=== PATIENT | female | born 1965 | race Caucasian/White ===

== ENCOUNTER 2018-07-12 14:24 | Emergency (ER) | payer BC, OTHER ==
[~2018-07-12] VITALS: Ht 154.9 cm; Wt 106.6 kg
[2018-07-12 14:58] LABS: WHITE BLOOD COUNT 7.8 10^3/uL (4.3-11.0)
[2018-07-12 14:59] LABS: BASOPHILS % (AUTO) 1 % (0-10); EOSINOPHILS # (AUTO) 0.2 10^3/uL (0.0-0.3); EOSINOPHILS % (AUTO) 2 % (0-10); HEMATOCRIT 37 % (35-52); LYMPHOCYTES # (AUTO) 2.3 X 10^3 (1.0-4.0); LYMPHOCYTES % (AUTO) 30 % (12-44); MEAN CORPUSCULAR HEMOGLOBIN 30 PG (25-34); MEAN CORPUSCULAR HGB CONC 33 G/DL (32-36); MEAN CORPUSCULAR VOLUME 91 FL (80-99); MEAN PLATELET VOLUME 10.2 FL (7.4-10.4); MONOCYTES # (AUTO) 0.6 X 10^3 (0.0-1.0); MONOCYTES % (AUTO) 7 % (0-12); NEUTROPHILS # (AUTO) 4.6 X 10^3 (1.8-7.8); NEUTROPHILS % (AUTO) 59 % (42-75); PLATELET COUNT 268 10^3/uL (130-400); RED CELL DISTRIBUTION WIDTH 11.9 % (10.0-14.5)
[2018-07-12 15:00] LABS: BASOPHILS # (AUTO) 0.1 10^3/uL (0.0-0.1)
[2018-07-12 15:06] LABS: BILIRUBIN,URINE NEGATIVE (NEGATIVE); CLARITY,URINE CLEAR; COLOR,URINE YELLOW; GLUCOSE, URINE (UA) NEGATIVE (NEGATIVE); KETONES,URINE NEGATIVE (NEGATIVE); LEUKOCYTE ESTERASE ,URINE NEGATIVE (NEGATIVE); NITRITE,URINE NEGATIVE (NEGATIVE); PROTEIN,URINE NEGATIVE (NEGATIVE); RBC,URINE 0-2 /HPF; UROBILINOGEN,URINE 0.2 MG/DL (NORMAL)
[2018-07-12 15:07] LABS: BACTERIA,URINE NEGATIVE /HPF; WBC,URINE 0-2 /HPF
[2018-07-12 15:29] LABS: CHLORIDE 102 MMOL/L (98-107); POTASSIUM 3.8 MMOL/L (3.6-5.0); SODIUM 140 MMOL/L (135-145)
[2018-07-12 15:30] LABS: ALANINE AMINOTRANSFERASE 29 U/L (0-55); ALBUMIN 4.5 GM/DL (3.2-4.5); ALKALINE PHOSPHATASE 42 U/L (40-136); BILIRUBIN,TOTAL 0.3 MG/DL (0.1-1.0); BUN/CREATININE RATIO 24; CALCIUM 9.4 MG/DL (8.5-10.1); CARBON DIOXIDE 21 MMOL/L (21-32); CREATININE SERUM 0.63 MG/DL (0.60-1.30); GFR ESTIMATED > 60; GLUCOSE 111 MG/DL (70-105); TOTAL PROTEIN 7.3 GM/DL (6.4-8.2)
--- NOTE | 2018-07-12 15:35 | Diagnostic Imaging Report ---
INDICATION: Heart palpitations and shortness of breath. TIME OF EXAM: 3:22 p.m. FINDINGS: The heart size is normal. The pulmonary vascularity is unremarkable. The lungs are clear. No infiltrate, effusion or pneumothorax is detected. IMPRESSION: No acute cardiopulmonary process is detected. Dictated by: Dictated on workstation # [id number]
--- NOTE | 2018-07-12 16:21 | NUR ---
Spoke with ADELIA Dominguez at Yenni Charles APRN's office. Angelica informed of patient declining inpatient admission and requesting outpatient stress test be scheduled.
--- NOTE | 2018-07-12 16:51 | ED Cardiac General ---
History of Present Illness General Chief Complaint: Cardiac/General Problems Stated Complaint: HEART PALPITATIONS; SOB Nursing Triage Note: Patient reports she has had palpitations for years, had a negative stress test 20 years ago. States she has gained weight and has become increasingly short of breath with activity for 2-3 weeks. Family history of heart disease and heart attack. Source: patient Exam Limitations: no limitations History of Present Illness Date Seen by Provider: Jul 12, 2018 Time Seen by Provider: 16:51 Initial Comments Patient presents with altered mental complaints. Patient reports written palpitations, dyspnea with exertion for the past 2-3 months. Exercise associated with sharp chest pain which is less than 5 minutes improved with rest. Patient denies shortness of breath, chest pain at this time. She was seen her primary care physician's office prior to the arrival and had an EKG performed which showed ST depression inferior and lateral leads without acute ST elevation. Patient denies history of CAD, congestive heart failure, valvular heart disease or cardiomyopathy. Does report history of palpitations for which she takes propranolol. She states sharp chest pain is likely related to propanolol and goes away when she remembers to take her medications. Patient was reports increased weight gain and hypertension which has been poorly controlled. Patient is a nonsmoker. States her father had an DE at the age of 51. Timing/Duration: changing over time, intermittent, resolved prior to arrival Severity: mild Location: central Activities at Onset: activity Prior CP/Workup: no prior chest pain Modifying Factors: improves with exercise NTG SL SUPERVISOR SHUTTLE VENEERING: No ASA po SUPERVISOR SHUTTLE VENEERING: No Associated Systoms: Chest Pain, Shortness of Air Allergies and Home Medications Allergies Coded Allergies: cefdinir (Verified Allergy, Intermediate, hives, 07/12/18) adhesive tape (Verified Allergy, Unknown, rash, 07/12/18) Uncoded Allergies: PENICILLIN (Allergy, Intermediate, rash, 07/12/18) Patient Home Medication List Home Medication List Reviewed: Yes Review of Systems Review of Systems Constitutional: see HPI EENTM: See HPI Respiratory: See HPI Cardiovascular: See HPI Gastrointestinal: See HPI Genitourinary: See HPI Musculoskeletal: see HPI Skin: see HPI Psychiatric/Neurological: See HPI Endocrine: See HPI Hematologic/Lymphatic: See HPI All Other Systems Reviewed Negative Unless Noted: Yes Past Oienufo-Sjatvi-Sztuly Hx Past Med/Social Hx: Reviewed Nursing Past Med/Soc Hx Patient Social History Alcohol Use: Denies Use Recreational Drug Use: No Smoking Status: Never a Smoker 2nd Hand Smoke Exposure: No Recent Foreign Travel: No Contact w/Someone Who Travel: No Recent Infectious Disease Expo: No Recent Hopitalizations: No Physical Abuse: No Sexual Abuse: No Mistreated: No Fear: No Seasonal Allergies Seasonal Allergies: No Past Medical History Surgeries: Yes Gallbladder Respiratory: No Cardiac: Yes High Cholesterol, Hypertension Neurological: No Genitourinary: No Gastrointestinal: No Musculoskeletal: No Endocrine: No HEENT: No Cancer: No Psychosocial: No Integumentary: No Blood Disorders: No Physical Exam Vital Signs Vital Signs - First Documented 07/12/18 14:45 Temp 98.3 Pulse 67 Resp 16 B/P (MAP) 166/80 (108) Pulse Ox 99 O2 Delivery Room Air Capillary Refill : Less Than 3 Seconds Height, Weight, BMI Height: 5'1.00" Weight: 235lbs. oz. 106.438005ot; BMI Method:Stated General Appearance: No Apparent Distress, WD/WN, Anxious HEENT: PERRL/EOMI, TMs Normal, Normal ENT Inspection, Pharynx Normal Neck: Full Range of Motion, Normal Inspection Respiratory: Chest Non Tender, Lungs Clear, Normal Breath Sounds Cardiovascular: Regular Rate, Rhythm, No Edema, No Gallop, No JVD, No Murmur Gastrointestinal: Non Tender Extremity: Normal Capillary Refill Neurologic/Psychiatric: Alert, Oriented x3, No Motor/Sensory Deficits Skin: Warm/Dry Focused Exam Sepsis Stage: Ruled Out Progress/Results/Core Measures Results/Orders Lab Results Laboratory Tests Test 07/12/18 14:30 07/12/18 14:45 Range/Units Urine Color YELLOW Urine Clarity CLEAR Urine pH 6.0 5-9 Urine Specific [place] 1.010 L 1.016-1.022 Urine Protein NEGATIVE NEGATIVE Urine Glucose (UA) NEGATIVE NEGATIVE Urine Ketones NEGATIVE NEGATIVE Urine Nitrite NEGATIVE NEGATIVE Urine Bilirubin NEGATIVE NEGATIVE Urine Urobilinogen 0.2 NORMAL MG/DL Urine Leukocyte Esterase NEGATIVE NEGATIVE Urine RBC (Auto) TRACE H NEGATIVE Urine RBC 0-2 /HPF Urine WBC 0-2 /HPF Urine Squamous Epithelial Cells NONE /HPF Urine Crystals NONE /LPF Urine Bacteria NEGATIVE /HPF Urine Casts NONE /LPF Urine Mucus NONE /LPF Urine Culture Indicated NO White Blood Count 7.8 4.3-11.0 10^3/uL Red Blood Count 4.04 L 4.35-5.85 10^6/uL Hemoglobin 12.0 11.5-16.0 G/DL Hematocrit 37 35-52 % Mean Corpuscular Volume 91 80-99 FL Mean Corpuscular Hemoglobin 30 25-34 PG Mean Corpuscular Hemoglobin Concent 33 32-36 G/DL Red Cell Distribution Width 11.9 10.0-14.5 % Platelet Count 268 130-400 10^3/uL Mean Platelet Volume 10.2 7.4-10.4 FL Neutrophils (%) (Auto) 59 42-75 % Lymphocytes (%) (Auto) 30 12-44 % Monocytes (%) (Auto) 7 0-12 % Eosinophils (%) (Auto) 2 0-10 % Basophils (%) (Auto) 1 0-10 % Neutrophils # (Auto) 4.6 1.8-7.8 X 10^3 Lymphocytes # (Auto) 2.3 1.0-4.0 X 10^3 Monocytes # (Auto) 0.6 0.0-1.0 X 10^3 Eosinophils # (Auto) 0.2 0.0-0.3 10^3/uL Basophils # (Auto) 0.1 0.0-0.1 10^3/uL D-Dimer 0.34 0.00-0.49 UG/ML Sodium Level 140 135-145 MMOL/L Potassium Level 3.8 3.6-5.0 MMOL/L Chloride Level 102 98-107 MMOL/L Carbon Dioxide Level 21 21-32 MMOL/L Anion Gap 17 H 5-14 MMOL/L Blood Urea Nitrogen 15 7-18 MG/DL Creatinine 0.63 0.60-1.30 MG/DL Estimat Glomerular Filtration Rate > 60 BUN/Creatinine Ratio 24 Glucose Level 111 H 70-105 MG/DL Calcium Level 9.4 8.5-10.1 MG/DL Corrected Calcium 9.0 8.5-10.1 MG/DL Total Bilirubin 0.3 0.1-1.0 MG/DL Aspartate Amino Transf (AST/SGOT) 32 5-34 U/L Alanine Aminotransferase (ALT/SGPT) 29 0-55 U/L Alkaline Phosphatase 42 40-136 U/L Troponin T < 6 <=10 NG/L Pro-B-Type Natriuretic Peptide 236.0 H <75.0 PG/ML Total Protein 7.3 6.4-8.2 GM/DL Albumin 4.5 3.2-4.5 GM/DL My Orders Orders - BLUE HEATH DO Cbc With Automated Diff (07/12/18 14:30) Comprehensive Metabolic Panel (07/12/18 14:30) Troponin T (07/12/18 14:30) Chest 1 View Ap/Pa Only (07/12/18 14:30) Ua Culture If Indicated (07/12/18 14:30) Probnp Fs (07/12/18 14:34) Ekg Tracing (07/12/18 14:38) Fibrin Degradation Products (07/12/18 15:02) Vital Signs/I&O 07/12/18 14:45 Temp 98.3 Pulse 67 Resp 16 B/P (MAP) 166/80 (108) Pulse Ox 99 O2 Delivery Room Air Blood Pressure Mean: 108 Departure Communication (PCP) Patient with ST depression, negative troponin mildly elevated BMP. Reports feeling anxious on emergency department due to potential concerns of heart disease. Blood pressure also noted be elevated. Admission[facility]transfer to [facility] packaging sales offered and recommended. Patient verbalized potential risks and dangers of delayed diagnosis/treatment and declines transfer. She prefers to follow up with her PCP for outpatient cardiac testing. Given the patient's asymptomatic, I feel is reasonable plan. Will add additional blood pressure medication and provide two-day course of diuretic. Patient strictly to return to the emergency department should her symptoms worsen. Impression Primary Impression: Chest pain on exertion Additional Impressions: Shortness of breath Hypertension Disposition: 01 HOME, SELF-CARE Condition: Stable Departure-Patient Inst. Decision time for Depature: 16:59 Referrals: KENDRA BATES APRN (PCP) Primary Care Physician BILLY SCHROEDER MD (Family) Primary Care Physician Patient Instructions: Chest Pain (DC), Shortness of Breath (Dyspnea) (DC), High Blood Pressure in Adults Add. Discharge Instructions: Please take newly prescribed medications as directed and follow-up with her PCPs office on Sunday morning to coordinate further outpatient cardiac testing. In the meantime, if you develop new or worsening symptoms, return to emergency department. All discharge instructions reviewed with patient and/or family. Voiced understanding. Scripts Furosemide (Lasix) 20 Mg Tablet 20 MG PO DAILY, #2 TAB Prov: BLUE HEATH DO 07/12/18 Amlodipine Besylate (Norvasc) 10 Mg Tablet 10 MG PO DAILY for 30 Days, TAB Prov: BLUE HEATH DO 07/12/18 BLUE HEATH DO Jul 12, 2018 16:51
[2018-07-12] MEDS ORDERED: FURO-125 PO (17:01)
[2018-07-12] MEDS ORDERED: AMLO10TA4 PO (17:01)
[2018-07-12 17:22] VITALS: BP 184/91
== END 2018-07-12 17:23 | disposition home or self-care (01) ==
LOC: ER FS 14:26
DX: R07.89 Other chest pain (principal); R06.02 Shortness of breath; I10 Essential (primary) hypertension; E78.00 Pure hypercholesterolemia, unspecified; Z82.49 Family history of ischemic heart disease and other diseases of the circulatory system; Z88.1 Allergy status to other antibiotic agents; Z88.0 Allergy status to penicillin; Z91.048 Other nonmedicinal substance allergy status
CPT/HCPCS: 36415; 71045; 80053; 81000; 83880; 84484; 85025; 85379; 93005

== ENCOUNTER 2019-09-06 12:20 | Emergency (ER) | payer BC ==
[~2019-09-06] VITALS: Ht 157.5 cm; Wt 106.8 kg
[~2019-09-06 12:20] MED LIST: AMLO10TA4 PO; FURO-125 PO
--- OUTSIDE RECORDS SUMMARY | 2019-09-06 12:23 | XMS REPORT | Continuity of Care Document ---
Author Organization Unknown Address Unknown Phone Unavailable Allergies Active Description Code Type Severity Reaction Onset Reported/Identified Relationship to Patient Clinical Status Yes cefdinir [id number] Drug Allergy Moderate hives 07/12/2018 Yes PENICILLIN PENICILLIN Moderate rash 07/12/2018 Yes adhesive tape [id number] Horace g Allergy Unknown rash 07/12/2018 Medications There is no data. Problems Date Dx Coded Attending Type Code Diagnosis Diagnosed By 07/12/2018 BLUE HEATH DO Ot E78.00 PURE HYPERCHOLESTEROLEMIA, UNSPECIFIED 07/12/2018 IVANA DO, BLUE Ot I10 ESSENTIAL (PRIMARY) HYPERTENSION 07/12/2018 HEATH DO, BLUE Ot R06.02 SHORTNESS OF BREATH 07/12/2018 HEATH DO BLUE Ot R07.89 OTHER CHEST PAIN 07/12/2018 BLUE HEATH DO Ot R41.82 ALTERED MENTAL STATUS, UNSPECIFIED 07/12/2018 HEATH DO, BLUE Ot Z82.49 FAMILY HX OF ISCHEM HEART DIS AND OTH DI 07/12/2018 IVANA WRIGHT BLUE Ot Z88.0 ALLERGY STATUS TO PENICILLIN 07/12/2018 HEATH DO, BLUE Ot Z88.1 ALLERGY STATUS TO OTHER ANTIBIOTIC AGENT 07/12/2018 IVANA WRIGHT BLUE Ot Z91.048 OTHER NONMEDICINAL SUBSTANCE ALLERGY STA 07/16/2018 BLUE HEATH DO Ot E78.00 PURE HYPERCHOLESTEROLEMIA, UNSPECIFIED 07/16/2018 IVANA WRIGHT BLUE Ot I10 ESSENTIAL (PRIMARY) HYPERTENSION 07/16/2018 IVANA DO BLUE Ot R06.02 SHORTNESS OF BREATH 07/16/2018 IVANA DO BLUE Ot R07.89 OTHER CHEST PAIN 07/16/2018 BLUE HEATH DO Ot R41.82 ALTERED MENTAL STATUS, UNSPECIFIED 07/16/2018 IVANA WRIGHT BLUE Ot Z82.49 FAMILY HX OF ISCHEM HEART DIS AND OTH DI 07/16/2018 IVANA WRIGHT BLUE Ot Z88.0 ALLERGY STATUS TO PENICILLIN 07/16/2018 IVANA WRIGHT, BLUE Ot Z88.1 ALLERGY STATUS TO OTHER ANTIBIOTIC AGENT 07/16/2018 IVANA WRIGHT BLUE Ot Z91.048 OTHER NONMEDICINAL SUBSTANCE ALLERGY STA Procedures There is no data. Results Test Result Range Complete urinalysis with reflex to cultu re - 07/12/18 14:30 Urine color determination YELLOW NRG Urine clarity determination CLEAR NR G Urine pH measurement by test strip 6.0 5-9 Specific gravity of urine by test strip 1.010 1.016-1.022 Urine protein assay by test strip, semi-quantitative NEGATIVE NEGATIVE Urine glucose detection by automated test strip NE GATIVE NEGATIVE Erythrocytes detection in urine sediment by light micr oscopy TRACE NEGATIVE Urine ketones detection by automated test strip NE GATIVE NEGATIVE Urine nitrite detection by test strip NEGATIVE NEGATIVE Urine total bilirubin detection by test strip NEGA TIVE NEGATIVE Urine urobilinogen measurement by automated test strip (mass/volume) 0.2 mg/dL NORMAL Urine leukocyte esterase detection by dipstick NEG ATIVE NEGATIVE Automated urine sediment erythrocyte cou nt by microscopy (number/high power field) [HPF] NRG Automated urine sediment leukocyte count by microscopy (number/high power field) [HPF] NRG Bacteria detection in urine sediment by light microsco py NEGATIVE NRG Squamous epithelial cells detection in u rine sediment by light microscopy NONE NRG Crystals detection in urine sediment by light microsco py NONE NRG Casts detection in urine sediment by light microscopy NONE NRG Mucus detection in urine sediment by light microscopy NONE NRG Complete urinalysis with reflex to culture NO NRG Complete blood count (CBC) with automate d white blood cell (WBC) differential - 07/12/18 14:45 Blood leukocytes automated count (number/volume) 7.8 10*3/uL 4.3-11.0 Blood erythrocytes automated count (number/volume) 4.04 10*6/uL 4.35-5.85 Venous blood hemoglobin measurement (mass/volume) 12.0 g/dL 11.5-16.0 Blood hematocrit (volume fraction) 37 % 35-52 Automated erythrocyte mean corpuscular volume 91 [ foz_us] 80-99 Automated erythrocyte mean corpuscular h emoglobin (mass per erythrocyte) 30 pg 25-34 Automated erythrocyte mean corpuscular h emoglobin concentration measurement (mass/volume) 33 g/dL 32-36 Automated erythrocyte distribution width ratio 11. 9 % 10.0- 14.5 Automated blood platelet count (count/volume) 268 10*3/uL 130-400 Automated blood platelet mean volume measurement 10.2 [foz_us] 7.4-10.4 Automated blood neutrophils/100 leukocytes 59 % 42-75 Automated blood lymphocytes/100 leukocytes 30 % 12-44 Blood monocytes/100 leukocytes 7 % 0-12 Automated blood eosinophils/100 leukocytes 2 % 0-10 Automated blood basophils/100 leukocytes 1 % 0-10 Blood neutrophils automated count (number/volume) 4.6 10*3 1.8-7.8 Blood lymphocytes automated count (number/volume) 2.3 10*3 1.0-4.0 Blood monocytes automated count (number/volume) 0. 6 10*3 0.0-1.0 Automated eosinophil count 0.2 10*3/uL 0 .0-0.3 Automated blood basophil count (count/volume) 0.1 10*3/uL 0.0-0.1 Comprehensive metabolic panel - 07/12/18 14:45 Serum or plasma sodium measurement (moles/volume) 140 mmol/L 135-145 Serum or plasma potassium measurement (moles/volume) 3.8 mmol/L 3.6-5.0 Serum or plasma chloride measurement (moles/volume) 102 mmol/L 98-107 Carbon dioxide 21 mmol/L 21-32 Serum or plasma anion gap determination (moles/volume) 17 mmol/L 5-14 Serum or plasma urea nitrogen measurement (mass/volume ) 15 mg/dL 7-18 Serum or plasma creatinine measurement (mass/volume) 0.63 mg/dL 0.60-1.30 Serum or plasma urea nitrogen/creatinine mass ratio 24 NRG Serum or plasma creatinine measurement w ith calculation of estimated glomerular filtration rate > NRG Serum or plasma glucose measurement (mass/volume) 111 mg/dL 70-105 Serum or plasma calcium measurement (mass/volume) 9.4 mg/dL 8.5-10.1 Serum or plasma total bilirubin measurement (mass/volu me) 0.3 mg/dL 0.1-1.0 Serum or plasma alkaline phosphatase nancy surement (enzymatic activity/volume) 42 U/L 40-136 Serum or plasma aspartate aminotransfera se measurement (enzymatic activity/volume) 32 U/L 5-34 Serum or plasma alanine aminotransferase measurement (enzymatic activity/volume) 29 U/L 0-55 Serum or plasma protein measurement (mass/volume) 7.3 g/dL 6.4-8.2 Serum or plasma albumin measurement (mass/volume) 4.5 g/dL 3.2-4.5 CALCIUM CORRECTED 9.0 mg/dL 8.5-10.1 TROPONIN T - 07/12/18 14:45 TROPONIN T < 6 <=10 PROBNP FS - 07/12/18 14:45 PROBNP FS 236.0 pg/mL <75.0 Fibrin D-dimer FEU measurement in platel et poor plasma (mass/volume) - 07/12/18 14:45 Fibrin D-dimer FEU measurement in platelet poor plasma (mass/volume) 0.34 ug/mL 0.00-0.49 Encounters ACCT No. Visit Date/Time Discharge Status Pt. Type Provider Facility Loc./Unit Complaint [id number] 07/12/2018 14:26:00 019 17:23:00 DIS Emergency HEATH BLUE WRIGHT [facility] ER FS HEART PALPITATIONS; SOB
[2019-09-06] MEDS ORDERED: ONDANSETRON 4 MG (ZOFRAN) ORAL DISSOLVE TAB PO STA (12:47)
[2019-09-06] MEDS ORDERED: LORazepam INJ 2 MG/ML (ATIVAN) VIAL IM ONE (13:00)
[2019-09-06] MEDS ORDERED: fentaNYL INJECTION 100 MCG/2 ML AMP IM PRN (13:00)
--- NOTE | 2019-09-06 13:42 | ED Abdominal Pain ---
General Chief Complaint: Rect Problems Stated Complaint: RECTAL PAIN Nursing Triage Note: Patient states she has a history of rectal fissures requiring surgical repair. States she became constipated following a surgery with prescription pain medication and developed another fissure. States she has been attempting to make an appointment with a surgeon at [facility]. Patient states the pain has worsened over the last 3 days and became severe today. Sepsis Screen: No Definite Risk Source of Information: Patient Exam Limitations: No Limitations History of Present Illness Date Seen by Provider: Sep 06, 2019 Time Seen by Provider: 13:00 Initial Comments Patient is a 54-year-old female with history of irritable bowel syndrome, rectal fissures and internal hemorrhoids who presents with intermittent rectal pain with rectal bleeding 2 months with increased rectal pain this morning. Patient describes heart burning sensation in rectum. Pain is lancinating and comes in waves. His rated moderate to severe. Patient has been using fetc-lgu-vnlpody pain medications and sitz baths without relief of symptoms. No nausea vomiting. No fever chills or sweats. No other acute symptoms or complaints. Patient's currently awaiting referral to general surgeon. Severity/Quality: Severe Location: Other (rectal) Associated Symptoms: Denies Symptoms Allergies and Home Medications Allergies Coded Allergies: cefdinir (Verified Allergy, Intermediate, hives, 07/12/18) adhesive tape (Verified Allergy, Unknown, rash, 07/12/18) morphine (Verified Adverse Reaction, Unknown, nausea and vomiting, 09/06/19) Uncoded Allergies: PENICILLIN (Allergy, Intermediate, rash, 07/12/18) Home Medications Amlodipine Besylate 10 Mg Tablet, 10 MG PO DAILY Prescribed by: BLUE HEATH on 07/12/181700 Furosemide 20 Mg Tablet, 20 MG PO DAILY Prescribed by: BLUE HEATH on 07/12/18 170 Patient Home Medication List Home Medication List Reviewed: Yes Review of Systems Review of Systems Constitutional: see HPI EENTM: See HPI Respiratory: See HPI Cardiovascular: See HPI Gastrointestinal: See HPI Genitourinary: See HPI Musculoskeletal: see HPI Skin: see HPI Psychiatric/Neurological: See HPI Endocrine: See HPI Hematologic/Lymphatic: See HPI Past Xagdfht-Xydecy-Eimoxc Hx Past Med/Social Hx: Reviewed Nursing Past Med/Soc Hx Patient Social History 2nd Hand Smoke Exposure: No Recent Foreign Travel: No Contact w/Someone Who Travel: No Recent Infectious Disease Expo: No Recent Hopitalizations: No Seasonal Allergies Seasonal Allergies: No Past Medical History Surgeries: Yes Gallbladder Respiratory: No Cardiac: Yes High Cholesterol, Hypertension Neurological: No Genitourinary: No Gastrointestinal: No Musculoskeletal: No Endocrine: No HEENT: No Cancer: No Psychosocial: No Integumentary: No Blood Disorders: No Physical Exam Vital Signs Vital Signs - First Documented 09/06/19 12:50 Temp 37.1 Pulse 70 Resp 20 B/P (MAP) 162/91 (114) Pulse Ox 93 O2 Delivery Room Air Capillary Refill : Less Than 3 Seconds Height/Weight/BMI Height: 5'1.00" Weight: 235lbs. oz. 106.538101ai; 43.00 BMI Method:Stated General Appearance: severe distress HEENT: PERRL/EOMI Neck: full range of motion, supple Respiratory: lungs clear Cardiovascular: regular rate, rhythm Gastrointestinal: non tender, soft, other (rectum, suspect is causing, no external hemorrhoids, bleeding or lesions appreciated. Unable to form COLLIN due to patient discomfort) Focused Exam Sepsis Stage: Ruled Out Progress/Results/Core Measures Results/Orders My Orders Orders - BLUE HEATH DO Fentanyl Injection (Sublimaze Injection (09/06/19 13:00) Ondansetron Oral Dissolve Tab (Zofran (09/06/19 12:47) Lorazepam Injection (Ativan Injection) (09/06/19 13:00) Medications Given in ED Current Medications Medications Dose Ordered Sig/Ascencion Route Start Time Stop Time Status Last Admin Dose Admin Fentanyl Citrate 100 mcg Q1H PRN IM 09/06/19 13:00 09/06/19 12:59 100 MCG Lorazepam 2 mg ONCE ONCE IM 09/06/19 13:00 09/06/19 13:01 DC 09/06/19 12:59 2 MG Vital Signs/I&O 09/06/19 12:50 Temp 37.1 Pulse 70 Resp 20 B/P (MAP) 162/91 (114) Pulse Ox 93 O2 Delivery Room Air Blood Pressure Mean: 114 Departure Communication (Admissions) Pain improved with tx. Patient currently on steroid, lidocaine cream,muscle relaxer and laxatives. We'll recommend tramadol and also with to follow with general surgeon Impression Primary Impression: Paroxysmal proctalgia Disposition: 01 HOME, SELF-CARE Condition: Improved Departure-Patient Inst. Referrals: KENDRA BATES APRN (PCP) Primary Care Physician BILLY SCHROEDER MD (Family) Primary Care Physician Patient Instructions: Anal Fissure (DC) Add. Discharge Instructions: Please continue home medications. Additionally, you may take Toradol for pain and Metamucil to soften bowel movements. Follow your PCP recommendations and follow-up with general surgeon. All discharge instructions reviewed with patient and/or family. Voiced understanding. BLUE HEATH DO Sep 06, 2019 13:42
[2019-09-06 14:10] VITALS: BP 166/72
== END 2019-09-06 14:06 | disposition home or self-care (01) ==
LOC: ER FS 12:20
DX: K62.89 Other specified diseases of anus and rectum (principal); I10 Essential (primary) hypertension; Z88.1 Allergy status to other antibiotic agents; Z88.5 Allergy status to narcotic agent; Z88.0 Allergy status to penicillin; Z88.8 Allergy status to other drugs, medicaments and biological substances
CPT/HCPCS: 99284

== ENCOUNTER 2019-09-09 11:53 | Emergency (ER) | payer BC ==
[~2019-09-09] VITALS: Ht 157.5 cm; Wt 106.6 kg
--- NOTE | 2019-09-09 12:11 | ED GI ---
General Chief Complaint: Rect Problems Stated Complaint: RECTAL PAIN Source of Information: Patient History of Present Illness Date Seen by Provider: Sep 09, 2019 Time Seen by Provider: 11:53 Initial Comments PT ARRIVES VIA POV FROM HOME PT IS SCREAMING AND WAILING AND WANTING WHEELCHAIR ON ARRIVAL C/O ANAL FISSURE C/O SEVERE RECTAL PAIN HAS LONG HISTORY OF IBS, ANAL FISSURES, HEMORRHOIDS. HAD RECTAL SURGERY 12 YEARS AGO FOR FISSURE HAS HAD INTERMITTENT RECTAL PAIN AND BRIGHT RED BLOOD OFF AND ON WITH BM'S FOR THE LAST COUPLE OF MONTHS PAIN BECAME SEVERE ON Sunday09/06/19 AFTER A BM AND WENT TO [facility]. WAS GIVEN FENTANYL AND ATIVAN, PT STATES SHE HAD TEMPORARY IMPROVEMENT. WAS GIVEN RX FOR LIDOCAINE CREAM SEEN AT DR. MICHAEL'S OFFICE ON SUNDAY FOR THIS PROBLEM, GIVEN RX FOR DILTIAZEM 2% RECTAL CREAM TID HAS AN APPOINTMENT TODAY AT 2:[address] MICHAEL FOR THIS SAME PROBLEM, BUT "COULDN'T WAIT" . ALSO HAS AN APPOINTMENT WITH HIM ON SUNDAY WELL PT HAS NOT USED THE LIDOCAINE CREAM TODAY, BUT USED DILTIAZEM CREAM TWICE--AFTER EACH OF 2 SMALL BM'S THIS AM STATES PAIN IS SEVERE AFTER THEM BM'S THIS MORNING. USED MIRALAX LAST NIGHT--STATES BM'S WEREN'T HARD, BUT NOT LOOSE EITHER. NO RECTAL BLEEDING TONIGHT NO ABDOMINAL PAIN NO NAUSEA/VOMITING NO FEVER NO OTHER DRAINAGE/DISCHARGE FROM RECTUM PT STATES SHE HAD BEEN USING TRAMADOL FOR SHOULDER PAIN--THINKS IT CAUSED CONSTIPATION. WAS NOT USING ANY STOOL SOFTENERS, ETC, UNTIL SHE USED MIRALAX LAST NIGHT PCP: BHAKTI BATES Allergies and Home Medications Allergies Coded Allergies: cefdinir (Verified Allergy, Intermediate, hives, 07/12/18) adhesive tape (Verified Allergy, Unknown, rash, 07/12/18) morphine (Verified Adverse Reaction, Unknown, nausea and vomiting, 09/06/19) Uncoded Allergies: PENICILLIN (Allergy, Intermediate, rash, 07/12/18) Home Medications Amlodipine Besylate 10 Mg Tablet, 10 MG PO DAILY Prescribed by: BLUE HEATH on 07/12/181700 Furosemide 20 Mg Tablet, 20 MG PO DAILY Prescribed by: BLUE HEATH on 07/12/181700 Patient Home Medication List Home Medication List Reviewed: Yes Review of Systems Review of Systems Constitutional: no symptoms reported Gastrointestinal: See HPI Genitourinary: No Symptoms Reported Skin: see HPI Past Nncatvw-Lbkchc-Bugney Hx Past Med/Social Hx: Reviewed and Corrections made Patient Social History 2nd Hand Smoke Exposure: No Recent Hopitalizations: No Seasonal Allergies Seasonal Allergies: No Past Medical History Surgeries: Yes (RECTAL FISSURE REPAIR; CARDIAC CATH--NO INTERVENTION; ) Gallbladder, Rectal Respiratory: No Cardiac: Yes High Cholesterol, Hypertension Neurological: No Genitourinary: No Gastrointestinal: Yes (ANAL FISSURES--S/P SURGERY 12 YEARS AGO) Hemorrhoids, Irritable Bowel Musculoskeletal: No Endocrine: Yes (OBESE) Diabetes, Non-Insulin dep HEENT: No Cancer: No Psychosocial: No Integumentary: No Blood Disorders: No Physical Exam Vital Signs Vital Signs - First Documented 09/09/19 11:53 Temp 36.8 Pulse 71 Resp 20 B/P (MAP) 152/63 (92) Pulse Ox 98 O2 Delivery Room Air Capillary Refill : Height/Weight/BMI Height: 5'1.00" Weight: 235lbs. oz. 106.311523ng; 43.00 BMI Method:Stated General Appearance: obese, other (PT IS SCREAMING AND WAILING, WEARING DARK GLASSES; WHEN DISTRACTED, PT TALKS IN NORMAL VOICE. PT TALKING ON CELL PHONE SHORTLY AFTER ARRIVAL AND TALKING IN A NORMAL VOICE--NO SCREAMING AND YELLING. ) Respiratory: normal breath sounds, no respiratory distress Cardiovascular: regular rate, rhythm Gastrointestinal: non tender, soft Rectal: other (UNABLE TO PERFORM DIGITAL EXAM DUE TO PT DISCOMFORT; AND VERY LIMITED VISUAL EXAM--SCREAMS WITH MINIMAL SEPARATION OF BUTTOCKS--EXTERNAL RECTAL AREA APPEARS GROSSLY NORMAL, ON LIMITED EXAM--NO SWELLING, NO INFLAMMATION, NO OBVIOUS HEMORRHOIDS, NO BLEEDING) Neurologic/Psychiatric: no motor/sensory deficits, alert, oriented x 3 Skin: normal color, warm/dry Progress/Results/Core Measures Results/Orders My Orders Orders - STACIE MARIO DO Lidocaine 2% (Urojet) (Xylocaine Urojet) (09/09/19 12:15) Ketorolac Injection (Toradol Injection) (09/09/19 12:15) Fentanyl Injection (Sublimaze Injection (09/09/19 13:00) Medications Given in ED Current Medications Medications Dose Ordered Sig/Ascencion Route Start Time Stop Time Status Last Admin Dose Admin Fentanyl Citrate 50 mcg ONCE ONCE IVP 09/09/19 13:00 09/09/19 13:01 DC 09/09/19 12:55 50 MCG Ketorolac Tromethamine 30 mg ONCE ONCE IVP 09/09/19 12:15 09/09/19 12:16 DC 09/09/19 12:12 30 MG Lidocaine HCl 10 ml ONCE ONCE TOP 09/09/19 12:15 09/09/19 12:16 DC 09/09/19 12:12 10 ML Vital Signs/I&O 09/09/19 11:53 Temp 36.8 Pulse 71 Resp 20 B/P (MAP) 152/63 (92) Pulse Ox 98 O2 Delivery Room Air Progress Progress Note : Progress Note TALKING ON PHONE DURING MOST OF ER STAY GIVEN TORADOL AND VISCOUS LIDOCAINE APPLIED VIA UROJET C/O INCREASED PAIN AFTER ATTEMPT TO HAVE BM-GIVEN FENTANYL Departure Impression Primary Impression: Rectal pain Disposition: HOME, SELF-CARE Condition: Stable Departure-Patient Inst. Referrals: KENDRA BATES APRN (PCP) Primary Care Physician BILLY SCHROEDER MD (Family) Primary Care Physician ANDREW MICHAEL MD Patient Instructions: Anal Fissure (DC) Add. Discharge Instructions: KEEP YOUR APPOINTMENT WITH DR. MICHAEL TODAY AT 2:30 USE YOUR TOPICAL MEDICATIONS PRESCRIBED All discharge instructions reviewed with patient and/or family. Voiced understanding. STACIE MARIO DO Sep 09, 2019 12:11
[2019-09-09] MEDS ORDERED: LIDOCAINE UROJET 2% GEL 10 ML PKG TOP ONE (12:15)
[2019-09-09] MEDS ORDERED: KETOROLAC 30 MG/ML VIAL IVP ONE (12:15)
[2019-09-09] MEDS ORDERED: fentaNYL INJECTION 100 MCG/2 ML AMP IVP ONE (13:00)
[2019-09-09 13:43] VITALS: BP 163/72
--- OUTSIDE RECORDS SUMMARY | 2019-09-09 13:47 | XMS REPORT | Continuity of Care Document ---
Author Organization Unknown Address Unknown Phone Unavailable Allergies Active Description Code Type Severity Reaction Onset Reported/Identified Relationship to Patient Clinical Status Yes cefdinir [id number] Drug Allergy Moderate hives 07/12/2018 Yes PENICILLIN PENICILLIN Moderate rash 07/12/2018 Yes adhesive tape [id number] Horace g Allergy Unknown rash 07/12/2018 Yes morphine [id number] Drug Allergy Unknown nausea and vomi 09/06/2019 Medications There is no data. Problems Date Dx Coded Attending Type Code Diagnosis Diagnosed By 07/12/2018 BLUE HEATH DO Ot E78.00 PURE HYPERCHOLESTEROLEMIA, UNSPECIFIED 07/12/2018 BLUE HEATH DO Ot I10 ESSENTIAL (PRIMARY) HYPERTENSION 07/12/2018 BLUE HEATH DO Ot R06.02 SHORTNESS OF BREATH 07/12/2018 IVANA BLUE Ot R07.89 OTHER CHEST PAIN 07/12/2018 BLUE HEATH DO Ot R41.82 ALTERED MENTAL STATUS, UNSPECIFIED 07/12/2018 HEATH BLUE WRIGHT Ot Z82.49 FAMILY HX OF ISCHEM HEART DIS AND OTH DI 07/12/2018 [facility] ALLERGY STATUS TO PENICILLIN 07/12/2018 BLUE HEATH DO Ot Z88.1 ALLERGY STATUS TO OTHER ANTIBIOTIC AGENT 07/12/2018 BLUE HEATH DO Ot Z91.048 OTHER NONMEDICINAL SUBSTANCE ALLERGY STA 07/16/2018 BLUE HEATH DO Ot E78.00 PURE HYPERCHOLESTEROLEMIA, UNSPECIFIED 07/16/2018 BLUE HEATH DO Ot I10 ESSENTIAL (PRIMARY) HYPERTENSION 07/16/2018 BLUE HEATH DO Ot R06.02 SHORTNESS OF BREATH 07/16/2018 BLUE HEATH DO Ot R07.89 OTHER CHEST PAIN 07/16/2018 BLUE HEATH DO Ot R41.82 ALTERED MENTAL STATUS, UNSPECIFIED 07/16/2018 BLUE HEATH DO Ot Z82.49 FAMILY HX OF ISCHEM HEART DIS AND OTH DI 07/16/2018 BLUE HEATH DO Ot Z88.0 ALLERGY STATUS TO PENICILLIN 07/16/2018 IVANA WRIGHT BLUE Ot Z88.1 ALLERGY STATUS TO OTHER ANTIBIOTIC AGENT 07/16/2018 BLUE HEATH DO Ot Z91.048 OTHER NONMEDICINAL SUBSTANCE ALLERGY STA [...] Status Pt. Type Provider Facility Loc./Unit Complaint [id number] 09/06/2019 12:20:00 020 14:06:00 DIS Emergency HEATH BLUE WRIGHT Via [facility] ER FS RECTAL PAIN [id number] 07/12/2018 14:26:00 019 17:23:00 DIS Emergency BLUE HEATH DO Via [facility] ER FS HEART PALPITATIONS; SOB
[2019-09-10] MEDS ORDERED: METF-397 PO (10:33)
[2019-09-10] MEDS ORDERED: CITA40TA11 PO (10:33)
[2019-09-10] MEDS ORDERED: MECL-149 PO (10:33)
[2019-09-10] MEDS ORDERED: TOPI50TA37 PO (10:33)
[2019-09-10] MEDS ORDERED: MAGN400T39 PO (10:33)
[2019-09-10] MEDS ORDERED: CETI10TA17 PO (10:33)
[2019-09-10] MEDS ORDERED: FLUT16SP22 NS (10:33)
[2019-09-10] MEDS ORDERED: LISI40TA PO (10:33)
[2019-09-10] MEDS ORDERED: COLE625T9 PO (10:33)
[2019-09-10] MEDS ORDERED: CLON0.1T PO (10:33)
[2019-09-10] MEDS ORDERED: ROSU5TAB13 PO (10:33)
[2019-09-10] MEDS ORDERED: GUAI600T43 PO (10:33)
[2019-09-10] MEDS ORDERED: TRAM50TA3 PO (10:33)
[2019-09-10] MEDS ORDERED: SUCR1TAB PO (10:33)
[2019-09-10] MEDS ORDERED: PROP20TA5 PO (10:33)
[2019-09-10] MEDS ORDERED: MELO15TA39 PO (10:33)
[2019-09-10] MEDS ORDERED: ALPR0.5T PO (10:35)
== END 2019-09-09 13:43 | disposition home or self-care (01) ==
LOC: EDUNIT# 11:53 → ER 11:55
DX: K62.89 Other specified diseases of anus and rectum (principal); I10 Essential (primary) hypertension; E66.9 Obesity, unspecified; Z88.1 Allergy status to other antibiotic agents; Z68.41 Body mass index [BMI] 40.0-44.9, adult; Z87.19 Personal history of other diseases of the digestive system; Z88.5 Allergy status to narcotic agent; Z88.0 Allergy status to penicillin; Z88.8 Allergy status to other drugs, medicaments and biological substances; Z95.9 Presence of cardiac and vascular implant and graft, unspecified

== ENCOUNTER 2019-09-10 09:41 | Outpatient (RCR) | payer BC ==
[~2019-09-10] VITALS: Ht 157 cm; Wt 106.0 kg
[2019-09-10] MEDS ORDERED: LISI40TA PO (10:33)
[2019-09-10] MEDS ORDERED: MELO15TA39 PO (10:33)
[2019-09-10] MEDS ORDERED: COLE625T9 PO (10:33)
[2019-09-10] MEDS ORDERED: PROP20TA5 PO (10:33)
[2019-09-10] MEDS ORDERED: MECL-149 PO (10:33)
[2019-09-10] MEDS ORDERED: CITA40TA11 PO (10:33)
[2019-09-10] MEDS ORDERED: FLUT16SP22 NS (10:33)
[2019-09-10] MEDS ORDERED: CLON0.1T PO (10:33)
[2019-09-10] MEDS ORDERED: SUCR1TAB PO (10:33)
[2019-09-10] MEDS ORDERED: METF-397 PO (10:33)
[2019-09-10] MEDS ORDERED: GUAI600T43 PO (10:33)
[2019-09-10] MEDS ORDERED: ROSU5TAB13 PO (10:33)
[2019-09-10] MEDS ORDERED: CETI10TA17 PO (10:33)
[2019-09-10] MEDS ORDERED: TOPI50TA37 PO (10:33)
[2019-09-10] MEDS ORDERED: TRAM50TA3 PO (10:33)
[2019-09-10] MEDS ORDERED: MAGN400T39 PO (10:33)
[2019-09-10] MEDS ORDERED: ALPR0.5T PO (10:35)
== END 2019-12-09 | disposition home or self-care (01) ==
LOC: PREOP 09:41
PROVIDERS: ATTEND Surgery
DX: Z01.818 Encounter for other preprocedural examination (principal)

== ENCOUNTER 2019-09-11 10:33 | Day surgery (SDC) | payer BC ==
[~2019-09-11] VITALS: Ht 157 cm; Wt 106.0 kg
[2019-09-11] VITALS (16 sets, daily range): BP systolic 109–214; BP diastolic 77–115
[~2019-09-11 10:33] MED LIST changes: +ALPR0.5T PO; +CETI10TA17 PO; +CITA40TA11 PO; +CLON0.1T PO; +COLE625T9 PO; +FLUT16SP22 NS; +GUAI600T43 PO; +LISI40TA PO; +MAGN400T39 PO; +MECL-149 PO; +MELO15TA39 PO; +METF-397 PO; +PROP20TA5 PO; +ROSU5TAB13 PO; +SUCR1TAB PO; +TOPI50TA37 PO; +TRAM50TA3 PO
--- NOTE | 2019-09-11 10:44 | Progress Note-Pre Operative ---
Pre-Operative Progress Note H&P Reviewed The H&P was reviewed, patient examined and no changes noted. Date Seen by Provider: Sep 11, 2019 Time Seen by Provider: 10:40 Date H&P Reviewed: Sep 11, 2019 Time H&P Reviewed: 10:40 Pre-Operative Diagnosis: anal fissure ANDREW MICHAEL MD Sep 11, 2019 10:44
[2019-09-11] MEDS ORDERED: oxyCODONE/APAP 5/325MG (PERCOCET 5) TABLET PO PRN (10:45)
[2019-09-11] MEDS ORDERED: ACETAMINOPHEN 325 MG TABLET PO PRN (10:45)
[2019-09-11] MEDS ORDERED: morphine INJ 10 MG/ML 1ML (SYR OR VIAL) IVP PRN ×2 (10:45)
[2019-09-11] MEDS ORDERED: ONDANSETRON 4 MG/2 ML (SDV) Z0FRAN IVP PRN ×2 (10:45→14:45)
--- NOTE | 2019-09-11 10:46 | Discharge Inst-Surgical ---
D/C Lap Instructions-FERNANDA Follow Up Appt in 2 weeks Activity as tolerated sitz bath QID and after every bowel movement. Regular Diet Symptoms to Report: Fever over 101 degree F, Nausea/Vomiting Infection Signs and Symptoms to report: Increased redness, Foul odor of wound, Increased drainage Bathing instructions: May shower Operative Area Clean/Dry; Keep incision clean/dry If any problems/questions: Contact your physician or go to Emergency Room ANDREW MICHAEL MD Sep 11, 2019 10:46
[2019-09-11] MEDS ORDERED: fentaNYL INJECTION 100 MCG/2 ML AMP IVP ONE ×2 (11:15→12:15)
[2019-09-11] MEDS: LACTATED RINGERS 1,000 ML IV PRN ×2 (11:20→15:14)
[2019-09-11] MEDS ORDERED: BUPIVACAINE 0.5% 30 ML (SENSORCAINE) VIAL ONE (12:35)
[2019-09-11] MEDS ORDERED: LIDOCAINE/EPI 1%-1:100,000 (XYLOCAINE) 20ML ONE (12:35)
[2019-09-11] MEDS ORDERED: proPOfol 200 MG/20 ML (DIPRIVAN) VIAL IV ONE (12:41)
[2019-09-11] MEDS ORDERED: LIDOCAINE PF 2% 5 ML (XYLOCAINE) VIAL ONE (12:41)
[2019-09-11] MEDS ORDERED: MIDAZOLAM 2 MG/2 ML (VERSED) VIAL ONE (13:27)
[2019-09-11] MEDS ORDERED: fentaNYL INJECTION 100 MCG/2 ML AMP ONE (13:27)
[2019-09-11] MEDS ORDERED: ONDANSETRON 4 MG/2 ML (SDV) Z0FRAN ONE (13:55)
[2019-09-11] MEDS ORDERED: CLINDAMYCIN 600 MG/4ML (CLEOCIN) VIAL ONE (14:12)
[2019-09-11] MEDS ORDERED: GLYCOPYRROLATE 0.2 MG/ML (ROBINUL) 2 ML VIAL ONE (14:17)
[2019-09-11] MEDS ORDERED: SEVOFLURANE (ULTANE) 15 ML INHAL SOLN ONE (14:39)
[2019-09-11] MEDS ORDERED: HYDROmorphone 2 MG/ML VIAL (DILAUDID) IV ONE (14:45)
--- OUTSIDE RECORDS SUMMARY | 2019-09-11 14:47 | XMS REPORT | Continuity of Care Document ---
Author Organization Unknown Address Unknown Phone Unavailable Allergies Active Description Code Type Severity Reaction Onset Reported/Identified Relationship to Patient Clinical Status Yes cefdinir [id number] Drug Allergy Moderate hives 07/12/2018 Yes PENICILLIN PENICILLIN Moderate rash 07/12/2018 Yes adhesive tape [id number] Horace g Allergy Unknown rash 07/12/2018 Yes morphine [id number] Drug Allergy Unknown nausea and vomi 09/06/2019 Yes morphine [id number] Drug Allergy Mild nausea and vomi 09/10/2019 Yes Penicillins [id number] Drug Aller gy Mild RASH 09/10/2019 Medications There is no data. Problems Date Dx Coded Attending Type Code Diagnosis Diagnosed By 07/12/2018 BLUE HEATH DO Ot E78.00 PURE HYPERCHOLESTEROLEMIA, UNSPECIFIED 07/12/2018 IVANA WRIGHT BLUE Ot I10 ESSENTIAL (PRIMARY) HYPERTENSION 07/12/2018 BLUE HEATH DO Ot R06.02 SHORTNESS OF BREATH 07/12/2018 BLUE HEATH DO Ot R07.89 OTHER CHEST PAIN 07/12/2018 BLUE HEATH DO Ot R41.82 ALTERED MENTAL STATUS, UNSPECIFIED 07/12/2018 BLUE HEATH DO Ot Z82.49 FAMILY HX OF ISCHEM HEART DIS AND OTH DI 07/12/2018 BLUE HEATH DO Ot Z88.0 ALLERGY STATUS TO PENICILLIN 07/12/2018 [...] ISCHEM HEART DIS AND OTH DI 07/16/2018 NETTIE DO, BLUE Ot Z88.0 ALLERGY STATUS TO PENICILLIN 07/16/2018 NETTIE DO, BLUE Ot Z88.1 ALLERGY STATUS TO OTHER ANTIBIOTIC AGENT 07/16/2018 NETTIE DO, BLUE Ot Z91.048 OTHER NONMEDICINAL SUBSTANCE ALLERGY STA 09/09/2019 NETTIE DO, BLUE Ot I10 ESSENTIAL (PRIMARY) HYPERTENSION 09/09/2019 NETTIE DO, BLUE Ot K62.89 OTHER SPECIFIED DISEASES OF ANUS AND REC 09/09/2019 NETTIE DO, BLUE Ot Z88.0 ALLERGY STATUS TO PENICILLIN 09/09/2019 NETTIE DO, BLUE Ot Z88.1 ALLERGY STATUS TO OTHER ANTIBIOTIC AGENT 09/09/2019 NETTIE DO, BLUE Ot Z88.5 ALLERGY STATUS TO NARCOTIC AGENT STATUS 09/09/2019 [facility], BLUE Ot Z88.8 ALLERGY STATUS TO OTH DRUG/MEDS/BIOL SUB Procedures There is no data. Results Test [...] platelet poor plasma (mass/volume) 0.34 ug/mL 0.00-0.49 Capillary blood glucose measurement by g lucometer (mass/volume) - 09/11/19 11:02 Capillary blood glucose measurement by glucometer (mas s/volume) 139 mg/dL 70-110 Encounters ACCT No. Visit Date/Time Discharge Status Pt. Type Provider Facility Loc./Unit Complaint [id number] 09/09/2019 11:55:00 020 13:43:00 DIS Emergency SHELBI STACIE WRIGHT [facility] ER RECTAL PAIN [id number] 09/06/2019 12:20:00 020 14:06:00 DIS Outpatient BLUE HEATH DO [facility] ER FS RECTAL PAIN [id number] 07/12/2018 14:26:00 019 17:23:00 DIS Emergency BLUE HEATH DO [facility] ER FS HEART PALPITATIONS; SOB [id number] 09/11/2019 11:30:00 P EN Preadmit ANDREW MICHAEL MD Via [facility] SDC ANAL FISSURE [id number] 09/10/2019 09:41:[address] Outpatient ANDREW MICHAEL MD [facility]ely PREOP ANAL FISSURE
--- NOTE | 2019-09-11 14:51 | Anesthesia-General Post-Op ---
General Patient Condition Mental Status/LOC: Same as Preop Cardiovascular: Satisfactory Nausea/Vomiting: Absent Respiratory: Satisfactory Pain: Controlled Complications: Absent Post Op Complications Complications None Follow Up Care/Instructions Patient Instructions None needed. Anesthesia/Patient Condition Patient Condition Patient is doing well, no complaints, stable vital signs, no apparent adverse anesthesia problems. No complications reported per nursing. D/C home per [facility] Criteria: Yes ANGELA CASH CRNA Sep 11, 2019 14:51
--- NOTE | 2019-09-11 14:53 | Progress Note-Post Operative ---
Post-Operative Progess Note Surgeon (s)/University Administrative Assistant (s) Surgeon ANDREW MICHAEL MD University Administrative Assistant: haydee solano [employer] SERVICE ADVISER Pre-Operative Diagnosis anal fissure Post-Operative Diagnosis anal fissure x2, rectocele Procedure & Operative Findings Date of Procedure 09/11/19 Procedure Performed/Findings anal exam under anesthesia. fissurectomy. Anesthesia Type general LMA Estimated Blood Loss Estimated blood loss (mL): minial Specimens/Packing Specimens Removed anal fissure ANDREW MICHAEL MD Sep 11, 2019 14:53
--- NOTE | 2019-09-17 16:47 | OPERATIVE REPORT ---
DATE OF SERVICE: 09/11/2019 ATTENDING PLASTIC TOOL MAKER: Yenni Charles APRN. PREOPERATIVE DIAGNOSIS: Symptomatic recurrent anal fissure. POSTOPERATIVE DIAGNOSES: Two anal fissures acute on chronic, stage II external and internal hemorrhoids. No fistulas. PROCEDURE: Anal exam under anesthesia, fissurectomy x2. Anal exam under anesthesia. Pudendal nerve block. SURGEON: Andrew Michael MD. PROOF LOAD MECHANIC: Cristopher Alegria APRN. ANESTHESIA: General laryngeal mask airway. ESTIMATED BLOOD LOSS: Minimal. FINDINGS: Two anal fissures acute on chronic, stage II external and internal hemorrhoids. No fistulas. DISPOSITION: The patient tolerated the procedure well. INDICATIONS: The patient is a 54-year-old female who has had a 4 to 5-day history of severe perianal pain. She states that this started 2 months ago and was treated conservatively with stool softeners, Sitz baths as well as diltiazem cream. She has a history of anal fissure and underwent a fissurectomy several years ago. The region was so painful that she could not be examined on two separate occasions. She reports that she did have shoulder surgery recently and was placed on pain medications, which did cause significant constipation. DESCRIPTION OF PROCEDURE: The patient was brought to the operating room, laid supine on the table. After adequate IV pain and sedated medications and general laryngeal mask airway intubation, the patient was placed in lithotomy position and the perineum prepped and draped in standard surgical fashion. A 1% lidocaine with epinephrine was used to proceed with a pudendal nerve block bilaterally. The anal sphincters did relax and a speculum was inserted. There was acute on chronic between stage II and III external and internal hemorrhoids. There were two fissures one at the 6 o'clock position with the patient supine and one at approximately the 2 o'clock position. There were no mucosal inflammatory changes identified within the rectal mucosa as well as no fistula was identified. There were also no masses. We then proceeded with excision of both of the fissures using a Sonicision, also encompassing some internal sphincter muscle sphincter fibers. The open defects were then both closed using 2-0 Vicryl running sutures. The anoderm was slightly snug however, two fingerbreadths were allowable. There may be a potential in the future for anal stenosis. The hemostatic plug was then placed inside the anus with Surgicel as well as Gelfoam. The patient tolerated the procedure well. We will have her continue with conservative medical management with Sitz baths on a q.i.d. basis after every bowel movement and can also continue with diltiazem cream as well as 2% lidocaine. We will also recommend high fiber supplementation to make her stools soft. Of note, we also did notice a rectocele which may be contributing to her episodes of constipation and incomplete evacuation, which causes back up in constipation. Once the fistulas have healed, we will refer her to OYSTER BED WORKER for possible repair of the rectocele. She may also develop an anal stenosis at some point due to this being the third fissurectomy and if this does occur, she will need an anorectal advancement flap, which we would refer her to a colorectal specialist for if this does occur. Job ID: [id number] DocumentID: [id number] Dictated Date: 09/17/2019 15:47:03 Erisa Attorney Date: 09/17/2019 16:47:18 Dictated By: ANDREW MICHAEL MD
== END 2019-09-11 16:35 | disposition home or self-care (01) ==
LOC: SDC 10:33
PROVIDERS: ATTEND Surgery
DX: K60.2 Anal fissure, unspecified (principal); K64.1 Second degree hemorrhoids; K64.8 Other hemorrhoids; F32.9 Major depressive disorder, single episode, unspecified; F41.9 Anxiety disorder, unspecified; K21.9 Gastro-esophageal reflux disease without esophagitis; M06.9 Rheumatoid arthritis, unspecified; I10 Essential (primary) hypertension; E11.43 Type 2 diabetes mellitus with diabetic autonomic (poly)neuropathy; K31.84 Gastroparesis; Z86.73 Personal history of transient ischemic attack (TIA), and cerebral infarction without residual deficits; Z79.84 Long term (current) use of oral hypoglycemic drugs; Z90.710 Acquired absence of both cervix and uterus; Z79.899 Other long term (current) drug therapy; Z79.51 Long term (current) use of inhaled steroids; Z90.49 Acquired absence of other specified parts of digestive tract; Z88.0 Allergy status to penicillin; Z88.8 Allergy status to other drugs, medicaments and biological substances
CPT/HCPCS: 46200; 64430; 82962; 87081; 88304; U0002; 87635

== ENCOUNTER → 2019-10-16 | Outpatient (CLI) | payer BC ==
--- NOTE | 2019-10-16 13:29 | Diagnostic Imaging Report ---
INDICATION: Low back pain and left thigh pain. TIME OF EXAM: 1:11 PM Curvature and alignment is normal. Vertebral body heights are well-maintained. Disc spaces are well-maintained. No fracture or subluxation is seen. There are atherosclerotic calcifications within the abdominal aorta. IMPRESSION: No acute bony abnormality is detected. Dictated by: Dictated on workstation # [id number]
--- NOTE | 2019-10-16 13:30 | Diagnostic Imaging Report ---
INDICATION: Left thigh pain. TIME OF EXAM: 10:08 PM Alignment at the hip and knee appears normal. The femur appears intact. No fractures are identified. Soft tissues are unremarkable. IMPRESSION: No acute abnormality is detected. Dictated by: Dictated on workstation # [id number]
== END ==
LOC: RAD FS 12:54
PROVIDERS: ATTEND Nurse Practitioner
DX: M79.605 Pain in left leg (principal); M79.652 Pain in left thigh; M54.5 Low back pain
CPT/HCPCS: 72100; 73552

== ENCOUNTER → 2020-03-01 | Outpatient (CLI) | payer BC ==
[~2020-03-01] MED LIST changes: +CLN.1T PO; -CLON0.1T PO
--- NOTE | 2020-03-01 17:25 | Diagnostic Imaging Report ---
PROCEDURE: MRI lumbar spine. TECHNIQUE: Multiplanar, multisequence MRI of the lumbar spine was performed without contrast. DATE: March 01, 2020. COMPARISON: Lumbar spine radiographs October 16, 2019. INDICATION: 54-year-old female, low back pain. Bilateral thigh numbness. FINDINGS: The alignment of the lumbar spine is unremarkable. There is no evidence of a diffuse marrow infiltrating or replacing process. There is no identified focal concerning bone lesion. There is no compression deformity or other fracture. There is no visualized pars interarticularis defect. The visualized cord and conus medullaris is unremarkable and terminates at the L1-L2 level. The disc heights are well preserved. L1-L2: There is no disc bulge. The facet joints and ligamentum flavum are unremarkable. There is no foraminal narrowing. There is no spinal canal stenosis. L2-L3: There is no disc bulge. The facet joints and ligamentum flavum are unremarkable. There is no foraminal narrowing. There is no spinal canal stenosis. L3-L4: There is no disc bulge. The facet joints and ligamentum flavum are unremarkable. There is no foraminal narrowing. There is no spinal canal stenosis. L4-L5: There is no disc bulge. There are mild left facet degenerative changes. There is a small to moderate left facet joint effusion. There is a periarticular cyst associated with the left facet articulation extending centrally measuring approximately 4 x 4 mm in size. There is moderate narrowing of the left lateral recess and associated mild to moderate spinal stenosis. There is no high-grade foraminal narrowing. L5-S1: There is no disc bulge. The facet joints and ligamentum flavum are unremarkable. There is no foraminal narrowing. There is no spinal canal stenosis. IMPRESSION: 1. Mild facet arthritis at L4-L5 with small to moderate-sized left facet joint effusion. There is a periarticular cyst associated with the left L4-L5 facet articulation extending essentially towards the spinal canal measuring 4 x 4 mm in size causing moderate narrowing of the left lateral recess and mild to moderate spinal stenosis. Dictated by: Dictated on workstation # [id number]
== END ==
LOC: RAD 15:55
PROVIDERS: ATTEND Nurse Practitioner
DX: M47.26 Other spondylosis with radiculopathy, lumbar region (principal); M48.061 Spinal stenosis, lumbar region without neurogenic claudication; M71.38 Other bursal cyst, other site
CPT/HCPCS: 72148

== ENCOUNTER → 2020-03-15 | Outpatient (CLI) | payer BC ==
[~2020-03-15] MED LIST changes: +BARIUM for suspension 96% w/w (Vanilla Silq Medium Density) PO ONE; +BARIUM for suspension 98% w/w (Vanilla Silq High Density) PO ONE
--- NOTE | 2020-03-15 13:50 | Diagnostic Imaging Report ---
INDICATION: Reflux. Study is performed prior to gastric sleeve surgery. TECHNIQUE: The patient ingested effervescent crystals as well as thin and thick barium and imaging of the esophagus, stomach and proximal small bowel was performed. Total of 1 minute and 2 seconds of fluoroscopic time was utilized. FINDINGS: Esophagus has a smooth contour. No mass or strictures identified. There is a small sliding-type hiatal hernia. No gastroesophageal reflux was demonstrated. The stomach has a normal configuration. No definite mass or ulceration is seen. There is normal emptying from stomach into the small bowel. Duodenal bulb is without deformity. IMPRESSION: Small sliding-type hiatal hernia. The study is otherwise unremarkable. Dictated by: Dictated on workstation # [id number]
== END ==
LOC: RAD 09:33
PROVIDERS: ATTEND Surgery
DX: K21.9 Gastro-esophageal reflux disease without esophagitis (principal); K44.9 Diaphragmatic hernia without obstruction or gangrene
CPT/HCPCS: 74246

== ENCOUNTER 2020-08-27 21:12 | Inpatient (IN) | payer BC ==
[~2020-08-27] VITALS: Ht 154 cm; Wt 110.0 kg
[~2020-08-27 21:12] MED LIST changes: -BARIUM for suspension 96% w/w (Vanilla Silq Medium Density) PO ONE; -BARIUM for suspension 98% w/w (Vanilla Silq High Density) PO ONE; -LISI40TA PO; +LISI40TA9 PO
[2020-08-27 21:42] LABS: BASOPHILS # (AUTO) 0.1 10^3/uL (0.0-0.1); BASOPHILS % (AUTO) 0 % (0-10); EOSINOPHILS # (AUTO) 0.1 10^3/uL (0.0-0.3); EOSINOPHILS % (AUTO) 1 % (0-10); HEMATOCRIT 28 % (35-52); HEMOGLOBIN 8.8 g/dL (11.5-16.0); LYMPHOCYTES # (AUTO) 1.1 10^3/uL (1.0-4.0); LYMPHOCYTES % (AUTO) 7 % (12-44); MEAN CORPUSCULAR HEMOGLOBIN 30 pg (25-34); MEAN CORPUSCULAR HGB CONC 32 g/dL (32-36); MEAN CORPUSCULAR VOLUME 93 fL (80-99); MEAN PLATELET VOLUME 9.6 fL (9.0-12.2); MONOCYTES # (AUTO) 0.9 10^3/uL (0.0-1.0); MONOCYTES % (AUTO) 6 % (0-12); NEUTROPHILS # (AUTO) 13.3 10^3/uL (1.8-7.8); NEUTROPHILS % (AUTO) 86 % (42-75); PLATELET COUNT 416 10^3/uL (130-400); WHITE BLOOD COUNT 15.5 10^3/uL (4.3-11.0)
[2020-08-27] MEDS ORDERED: NS IV 1000 ML 1,000 ML IV SCH ×3 (21:45→23:30)
[2020-08-27 21:46] LABS: CLARITY,URINE CLEAR; COLOR,URINE DARK YELLOW; GLUCOSE, URINE (UA) NEGATIVE (NEGATIVE); KETONES,URINE 3+ (NEGATIVE); LEUKOCYTE ESTERASE ,URINE 1+ (NEGATIVE); NITRITE,URINE NEGATIVE (NEGATIVE); PH,URINE 6.5 (5-9); PROTEIN,URINE TRACE (NEGATIVE)
--- NOTE | 2020-08-27 21:47 | ED Abdominal Pain ---
General Chief Complaint: Abdominal/GI Problems Stated Complaint: POST GASTRIC SLEEVE OP/FEVER/STOMACH PAIN Nursing Triage Note: Patient had a gastric sleeve placed on 08/16/20. She advised that she has had a fever x 11 days and tonight her fever was at 102.5. She states she took 500mg tylenol at 1900 but has not taken anything since. Sepsis Screen: No Definite Risk Source of Information: Patient Exam Limitations: No Limitations History of Present Illness Date Seen by Provider: Aug 27, 2020 Time Seen by Provider: 21:26 Initial Comments Patient presents ER by private conveyance from home with chief complaint for the past week she is been having fevers around 100 201. Has been treating it with Tylenol her tramadol and Imodium for her loose stools. She is not had any urinary symptoms. On 17 August she had a gastric sleeve by Dr. Mei. She is been in contact with him about her fevers and he sent her a prescription for some Cipro thinking it might be a UTI. She has not started it yet she just picked it up today. Tonight however she said her fever went up to 102 and she is having some generalized discomfort about a 5-6 out of 10 in her epigastric region so when she called the surgeon he asked her to come out to the ER to be checked out. She is not having any nausea or vomiting. She has been able to eat cream of wheat few tablespoons at a time. She says she is urinating normally. She still having some loose stools today. Allergies and Home Medications Allergies Coded Allergies: cefdinir (Verified Allergy, Intermediate, hives, 07/12/18) Penicillins (Verified Allergy, Mild, RASH, 09/10/19) adhesive tape (Verified Allergy, Unknown, rash, 07/12/18) morphine (Verified Adverse Reaction, Mild, nausea and vomiting, 09/10/19) Home Medications Alprazolam 0.5 Mg Tablet, 0.5 MG PO HS, (Reported) Cetirizine HCl 10 Mg Tablet, 10 MG PO DAILY, (Reported) Citalopram Hydrobromide 40 Mg Tablet, 40 MG PO DAILY, (Reported) Clonidine HCl 0.1 Mg Tablet, 0.1 MG PO DAILY, (Reported) Colesevelam HCl 625 Mg Tablet, 625 MG PO DAILY, (Reported) Fluticasone Propionate 16 Gm Dobson.susp, 16 GM NS DAILY, (Reported) Guaifenesin 600 Mg Tab.er.12h, 600 MG PO PRN, (Reported) Lisinopril 40 Mg Tablet, 40 MG PO DAILY, (Reported) Magnesium Oxide 400 Mg Tablet, 400 MG PO DAILY, (Reported) Meclizine HCl 25 Mg Tablet, 25 MG PO PRN, (Reported) Meloxicam 15 Mg Tablet, 15 MG PO DAILY, (Reported) Metformin HCl 500 Mg Tablet, 500 MG PO DAILY, (Reported) Propranolol HCl 20 Mg Tablet, 20 MG PO DAILY, (Reported) Rosuvastatin Calcium 5 Mg Tablet, 5 MG PO DAILY, (Reported) Sucralfate 1 Gm Tablet, 1 GM PO ACHS, (Reported) Topiramate 50 Mg Tablet, 50 MG PO DAILY, (Reported) Tramadol HCl 50 Mg Tablet, 50 MG PO PRN, (Reported) Patient Home Medication List Home Medication List Reviewed: Yes Review of Systems Review of Systems Constitutional: No chills, No diaphoresis EENTM: No Blurred Vision, No Double Vision Respiratory: Denies Cough, Denies Orthopnea Cardiovascular: Denies Chest Pain, Denies Lightheadedness Gastrointestinal: See HPI, Abdominal Pain; Denies Constipated; Diarrhea; Denies Nausea, Denies Poor Fluid Intake, Denies Vomiting Genitourinary: Denies Burning, Denies Discharge Musculoskeletal: No back pain, No joint pain Skin: No pruritus, No rash Psychiatric/Neurological: Denies Headache, Denies Numbness All Other Systems Reviewed Negative Unless Noted: Yes Past Jkdyfup-Bngdjz-Twxleg Hx Patient Social History Alcohol Use: Denies Use Number of Drinks Today: Alcohol Beverage of Choice: Wine Smoking Status: Never a Smoker 2nd Hand Smoke Exposure: No Recent Infectious Disease Expo: No Recent Hopitalizations: Yes (gastric sleeve ) Seasonal Allergies Seasonal Allergies: Yes Past Medical History Surgeries: Yes (R RCR) Appendectomy, Gallbladder, Hysterectomy Respiratory: No Currently Using CPAP: No Currently Using BIPAP: No Cardiac: Yes High Cholesterol, Hypertension, Palpitations Neurological: Yes Headaches /Migraines Sexually Transmitted Disease: No HIV/AIDS: No Genitourinary: No Gastrointestinal: Yes Gastroesophageal Reflux, Chronic Constipation, Chronic Diarrhea Musculoskeletal: Yes Arthritis Endocrine: Yes Diabetes, Non-Insulin dep HEENT: Yes (GLASSES) Loss of Vision: Denies Hearing Impairment: Denies Cancer: No Psychosocial: Yes Anxiety, Depression Integumentary: No Blood Disorders: No Adverse Reaction/Blood Tranf: No (HAD BLOOD -NO REACTION) Physical Exam Vital Signs Vital Signs - First Documented 08/27/20 21:26 Temp 39.0 Pulse 90 Resp 18 B/P (MAP) 152/75 (100) Pulse Ox 93 O2 Delivery Room Air Capillary Refill : Less Than 3 Seconds Height/Weight/BMI Height: 5'1.00" Weight: 235lbs. oz. [id number]; 44.00 BMI Method:Stated General Appearance: WD/WN, mild distress HEENT: PERRL/EOMI, pharynx normal Neck: full range of motion, normal inspection Respiratory: lungs clear, normal breath sounds, no accessory muscle use, respiratory distress (mild 91% ra nonlabored) Cardiovascular: normal peripheral pulses (80 bpm), regular rate, rhythm, no edema Gastrointestinal: soft, no organomegaly, tenderness (Around the surgical sites with some old 3-5-day-old bruising on the right lateral abdomen.) Extremities: normal range of motion, normal inspection, normal capillary refill Neurologic/Psychiatric: alert, normal mood/affect, oriented x 3 Skin: normal color, warm/dry Focused Exam Lactate Level 08/27/20 22:17: Lactic Acid Level 0.80 Lactic Acid Level Laboratory Tests Test 08/27/20 22:17 Lactic Acid Level 0.80 MMOL/L (0.50-2.00) Progress/Results/Core Measures Results/Orders Lab Results Laboratory Tests Test 08/27/20 21:30 08/27/20 21:40 08/27/20 21:53 08/27/20 22:17 Range/Units White Blood Count 15.5 H 4.3-11.0 10^3/uL Red Blood Count 2.98 L 3.80-5.11 10^6/uL Hemoglobin 8.8 L 11.5-16.0 g/dL Hematocrit 28 L 35-52 % Mean Corpuscular Volume 93 80-99 fL Mean Corpuscular Hemoglobin 30 25-34 pg Mean Corpuscular Hemoglobin Concent 32 32-36 g/dL Red Cell Distribution Width 15.6 H 10.0-14.5 % Platelet Count 416 H 130-400 10^3/uL Mean Platelet Volume 9.6 9.0-12.2 fL Immature Granulocyte % (Auto) 1 % Neutrophils (%) (Auto) 86 H 42-75 % Lymphocytes (%) (Auto) 7 L 12-44 % Monocytes (%) (Auto) 6 0-12 % Eosinophils (%) (Auto) 1 0-10 % Basophils (%) (Auto) 0 0-10 % Neutrophils # (Auto) 13.3 H 1.8-7.8 10^3/uL Lymphocytes # (Auto) 1.1 1.0-4.0 10^3/uL Monocytes # (Auto) 0.9 0.0-1.0 10^3/uL Eosinophils # (Auto) 0.1 0.0-0.3 10^3/uL Basophils # (Auto) 0.1 0.0-0.1 10^3/uL Immature Granulocyte # (Auto) 0.1 0.0-0.1 10^3/uL Sodium Level 135 135-145 MMOL/L Potassium Level 3.4 L 3.6-5.0 MMOL/L Chloride Level 98 98-107 MMOL/L Carbon Dioxide Level 23 21-32 MMOL/L Anion Gap 14 5-14 MMOL/L Blood Urea Nitrogen 6 L 7-18 MG/DL Creatinine 0.76 0.60-1.30 MG/DL Estimat Glomerular Filtration Rate > 60 BUN/Creatinine Ratio 8 Glucose Level 129 H 70-105 MG/DL Calcium Level 8.9 8.5-10.1 MG/DL Corrected Calcium 9.3 8.5-10.1 MG/DL Total Bilirubin 1.8 H 0.1-1.0 MG/DL Aspartate Amino Transf (AST/SGOT) 24 5-34 U/L Alanine Aminotransferase (ALT/SGPT) 17 0-55 U/L Alkaline Phosphatase 90 40-136 U/L C-Reactive Protein High Sensitivity 23.29 H 0.00-0.50 MG/DL Total Protein 6.9 6.4-8.2 GM/DL Albumin 3.5 3.2-4.5 GM/DL Lipase 15 8-78 U/L Smear Scan YES Urine Color DARK YELLOW Urine Clarity CLEAR Urine pH 6.5 5-9 Urine Specific [place] 1.015 L 1.016-1.022 Urine Protein TRACE H NEGATIVE Urine Glucose (UA) NEGATIVE NEGATIVE Urine Ketones 3+ H NEGATIVE Urine Nitrite NEGATIVE NEGATIVE Urine Bilirubin NEGATIVE NEGATIVE Urine Urobilinogen >=8.0 < = 1.0 MG/DL Urine Leukocyte Esterase 1+ H NEGATIVE Urine RBC (Auto) NEGATIVE NEGATIVE Urine RBC 0-2 /HPF Urine WBC 5-10 H /HPF Urine Squamous Epithelial Cells 2-5 /HPF Urine Crystals NONE /LPF Urine Bacteria MODERATE H /HPF Urine Casts NONE /LPF Urine Mucus NEGATIVE /LPF Urine Culture Indicated YES Influenza Type A (RT-PCR) Not Detected Not Detecte Influenza Type B (RT-PCR) Not Detected Not Detecte SARS-CoV-2 RNA (RT-PCR) Not Detected Not Detecte Lactic Acid Level 0.80 0.50-2.00 MMOL/L Test 08/27/20 23:05 Range/Units Prothrombin Time 15.6 H 12.2-14.7 SEC INR Comment 1.2 0.8-1.4 Activated Partial Thromboplast Time 40 H 24-35 SEC My Orders Orders - EMERSON PERKINS Ed Iv/Invasive Line Start (08/27/20 21:31) Ns Iv 1000 Ml (Sodium Chloride 0.9%) (08/27/20 21:45) Cbc With Automated Diff (08/27/20 21:31) Comprehensive Metabolic Panel (08/27/20 21:31) Hs C Reactive Protein (08/27/20 21:31) Lipase (08/27/20 21:31) Blood Culture (08/27/20 21:31) Ua Culture If Indicated (08/27/20 21:31) Covid 19 Inhouse Test (08/27/20 21:31) Influenza A And B By Pcr (08/27/20 21:31) Ct Angio Chest W (08/27/20 21:54) Lactic Acid Analyzer (08/27/20 22:09) Urine Culture (08/27/20 21:40) Metronidazole 500mg/100ml Ivpb (Flagyl 5 (08/27/20 22:30) Levofloxacin 750 Mg/150 Ml Iv (Levaquin (08/27/20 22:30) Iohexol Injection (Omnipaque 350 Mg/Ml 1 (08/27/20 23:00) Received Contrast (Hold Metformin- Contr (08/27/20 23:00) Sodium Chloride Flush (Catheter Flush Sy (08/27/20 23:00) Ns (Ivpb) (Sodium Chloride 0.9% Ivpb Bag (08/27/20 23:00) Fentanyl Inj (Sublimaze Injection) (08/27/20 23:15) Type And Screen (08/27/20 23:03) Protime With Inr (08/27/20 23:06) Partial Thromboplastin Time (08/27/20 23:06) Ed Iv/Invasive Line Start (08/27/20 23:06) Ed Iv/Invasive Line Start (08/27/20 23:06) Vital Signs Adult Sepsis Patie Q15M (08/27/20 23:06) O2 (08/27/20 23:06) Remove Rings In Anticipation O (08/27/20 23:06) Lactic Acid Analyzer (08/27/20 23:06) Ns Iv 1000 Ml (Sodium Chloride 0.9%) (08/27/20 23:15) Ed Iv/Invasive Line Start (08/27/20 23:17) Ns Iv 1000 Ml (Sodium Chloride 0.9%) (08/27/20 23:30) Ertapenem (Non-Formulary) (Invanz (Non-F (08/27/20 23:17) Fluconazole 200 Mg/100 Ml (Diflucan Iv) (08/27/20 23:30) Medications Given in ED Current Medications Medications Dose Ordered Sig/Ascencion Route Start Time Stop Time Status Last Admin Dose Admin Fentanyl Citrate 50 mcg ONCE ONCE IVP 08/27/20 23:15 08/27/20 23:16 DC 08/27/20 23:06 50 MCG Iohexol 100 ml ONCE ONCE IV 08/27/20 23:00 08/27/20 23:01 DC 08/27/20 23:02 90 ML Levofloxacin/ Dextrose 150 ml @ 100 mls/hr ONCE ONCE IV 08/27/20 22:30 08/27/20 23:59 08/27/20 23:07 100 MLS/HR Metronidazole 100 ml @ 100 mls/hr ONCE ONCE IV 08/27/20 22:30 08/27/20 23:29 08/27/20 23:07 100 MLS/HR Sodium Chloride 10 ml NEEDED PRN IV 08/27/20 23:00 08/27/20 23:02 10 ML Sodium Chloride 100 ml ONCE ONCE IV 08/27/20 23:00 08/27/20 23:01 DC 08/27/20 23:02 70 ML Vital Signs/I&O 08/27/20 21:26 Temp 39.0 Pulse 90 Resp 18 B/P (MAP) 152/75 (100) Pulse Ox 93 O2 Delivery Room Air Blood Pressure Mean: 100 Progress Progress Note #1: Time: 21:48 Progress Note Concern for intra-abdominal process given the diarrhea. Plan to check some urine and blood. She is not septic at this time although she does have reported fever she does not have tachycardia tachypnea. We will give her a liter of fluids get some blood cultures and CT scan of her abdomen and pelvis. She has a low oxygen saturation occasional cough and recently had surgery so pneumonia or pulmonary embolisms in the differential as well. Progress Note #2: Time: 23:04 Progress Note Septic work-up was initiated for her fever and white count. Levaquin and Flagyl were ordered. A second liter of fluids will be given. Her hemoglobin is 8.8 down from 12 over a year ago. We are going to type and screen her as she may need to go back to surgery as she has evidence of free air under the abdomen concern for bowel perforation. Will contact Dr. Mei. 50 mcg IV fentanyl for pain. 2 L would be greater than 30 mL/kg based on an adjusted ideal body weight of 69 kg. Diagnostic Imaging Diagonstic Imaging: Xray Plain Films/CT/US/NM/MRI: chest Reviewed: Reviewed by Me Diagonstic Imaging: CT Plain Films/CT/US/NM/MRI: chest, abdomen, pelvis Comments No pulmonary embolus. Small to moderate bilateral pleural effusions. Postsurgical change of the stomach likely gastric sleeve procedure. Moderate sized fluid collection with gas and high density material seen in the left upper quadrant. Additional stranding and free air seen within the upper abdomen. Findings may represent resolving hematoma with dehiscence of the suture or possible abscess. Apparent abdominal phlegmon with free air in the abdomen. Free fluid. Reviewed: Reviewed Night Agustin Study, Reviewed by Me Departure Communication (Admissions) Time/Spoke to Admitting Phy: 23:10 Discussed the case with Dr. Mei, general surgery and he would like the patient admitted under him with a consult to medicine. N.p.o. for now, as needed medicines, IV fluids, Invanz and Diflucan. He will discuss doing a percutaneous drain and central line for TPN tomorrow. Time/Spoke to Consulting Phy: 23:20 Discussed the case with Dr. Miguel and she agrees to medically consult with the patient in the ICU. Impression Primary Impression: Sepsis Qualified Codes: A41.9 - Sepsis, unspecified organism; R65.20 - Severe sepsis without septic shock; K72.00 - Acute and subacute hepatic failure without coma Additional Impression: Intra-abdominal abscess post-procedure Disposition: ADMITTED INPATIENT Condition: Stable Admissions Decision to Admit Reason: Admit from ER (General) Decision to Admit/Date: Aug 27, 2020 Time/Decision to Admit Time: 22:59 Departure-Patient Inst. Referrals: [facility] (PCP) Primary Care Physician KENDRA BATES APRN (Family) Primary Care Physician EMERSON PERKINS Aug 27, 2020 21:47
[2020-08-27 21:49] LABS: ALBUMIN 3.5 GM/DL (3.2-4.5)
[2020-08-27 21:50] LABS: CHLORIDE 98 MMOL/L (98-107); POTASSIUM 3.4 MMOL/L (3.6-5.0); SODIUM 135 MMOL/L (135-145)
[2020-08-27 21:51] LABS: CALCIUM 8.9 MG/DL (8.5-10.1)
[2020-08-27 21:52] LABS: GLUCOSE 129 MG/DL (70-105); TOTAL PROTEIN 6.9 GM/DL (6.4-8.2)
[2020-08-27 21:53] LABS: CARBON DIOXIDE 23 MMOL/L (21-32)
[2020-08-27 21:54] LABS: BILIRUBIN,TOTAL 1.8 MG/DL (0.1-1.0)
[2020-08-27 21:55] LABS: SMEAR SCAN COMMENT YES
[2020-08-27 21:56] LABS: ALKALINE PHOSPHATASE 90 U/L (40-136); CREATININE SERUM 0.76 MG/DL (0.60-1.30); GFR ESTIMATED > 60
[2020-08-27 21:57] LABS: BUN/CREATININE RATIO 8
[2020-08-27 21:59] LABS: ALANINE AMINOTRANSFERASE 17 U/L (0-55); LIPASE 15 U/L (8-78)
[2020-08-27 22:08] LABS: BACTERIA,URINE MODERATE /HPF; RBC,URINE 0-2 /HPF
[2020-08-27 22:11] LABS: BILIRUBIN,URINE NEGATIVE (NEGATIVE)
[2020-08-27] MEDS ORDERED: metroNIDAZOLE 500MG/100ML IVPB 100 ML IV ONE (22:30)
[2020-08-27] MEDS ORDERED: NS 100 ML (IVPB) BAG IV ONE (23:00)
[2020-08-27] MEDS ORDERED: CATHETER FLUSH 10 ML SYR IV PRN (23:00)
[2020-08-27] MEDS ORDERED: IOHEXOL 350 MG/ML 100 ML (OMNIPAQUE 350) VIAL IV ONE (23:00)
[2020-08-27] MEDS ORDERED: HOLD METFORMIN - RECEIVED CONTRAST 20 ML VIAL IV SCH (23:00)
[2020-08-27] MEDS ORDERED: fentaNYL INJ 100 MCG/2 ML AMP IVP ONE (23:15)
[2020-08-27] MEDS ORDERED: ERTAPENEM (NON-FORMULARY) 1,000 MG in NS (IVPB) 50 ML IV STA (23:17)
[2020-08-27 23:26] LABS: INR 1.2 (0.8-1.4); PROTHROMBIN TIME PATIENT 15.6 SEC (12.2-14.7)
[2020-08-27] MEDS ORDERED: FLUCONAZOLE 200 MG/100 ML 50 ML, SYRINGE-IVPB 1 SYRINGE IV ONE ×2 (23:30)
--- NOTE | 2020-08-27 23:31 | HISTORY AND PHYSICAL ---
DATE OF SERVICE: ATTENDING GRANULATOR OPERATOR: Yenni Charles APRN HISTORY OF PRESENT ILLNESS: The patient is a 55-year-old female who is status post laparoscopic gastric sleeve resection on 08/16/2020. She reports that she has had intermittent episodes of fevers which were initially low-grade however, developed a higher fever of 102 at home. She states that she has mild abdominal discomfort; however, not severe. She states that she is tolerating liquids and having loose stools. The patient does have a leukocytosis with a white count of 15.5 and febrile with a temperature 39.0. Urinalysis was nitrite positive as well as moderate bacteria. CT scan does appear to represent an intra-abdominal abscess in the left upper abdominal quadrant. PAST MEDICAL HISTORY: Hypertension, hypercholesterolemia, diabetes, migraines, gastroesophageal reflux disease, chronic constipation, degenerative joint disease. PAST SURGICAL HISTORY: Laparoscopic cholecystectomy, appendectomy, total hysterectomy, laparoscopic gastric sleeve resection on 08/16/2020. ALLERGIES: PENICILLIN, MORPHINE, CEFDINIR. MEDICATIONS: Alprazolam, , citalopram, clonidine, lisinopril, fluticasone spray, meloxicam, metformin, propranolol, rosuvastatin, Protonix, topiramate, tramadol. SOCIAL HISTORY: Negative smoke, negative alcohol. FAMILY HISTORY: Noncontributory. VITAL SIGNS: Temperature 39.0, blood pressure 152/75, pulse 90, respirations 18, pulse ox 93% on room air. REVIEW OF SYSTEMS: A well-nourished female, currently in no acute distress. She is not experiencing any shortness of breath or difficulty breathing. No chest pain, palpitations, diaphoresis. No nausea, vomiting with loose stools. She is tolerating liquids without any difficulty. No red blood per rectum, no dark tarry stools. Intermittent fevers for the past week. All other review of systems negative. PHYSICAL EXAMINATION: CHEST: Few scattered rales bilaterally. HEART: Regular, no murmurs. EXTREMITIES: No lower extremity edema, negative Homans sign. HEENT: No scleral icterus. NECK: No cervical lymphadenopathy. ABDOMEN: Soft, nondistended. There is mild to moderate pain upon palpation of the left upper abdominal quadrant. Incisions are clean, dry and intact with no surrounding redness or erythema. There is ecchymosis along the right lateral abdomen. SKIN: Warm, dry. LABORATORY DATA: WBC 15.5, hemoglobin 8.8, hematocrit 28, platelets 416. BUN 6, creatinine 0.76, total bilirubin 1.8, lipase 15. Urinalysis 3+ urine ketones, positive leukocyte esterase, moderate bacteria. ASSESSMENT AND PLAN: A 55-year-old female with intraabdominal abscess, status post laparoscopic gastric sleeve resection. We will admit her, proceed with bowel rest and IV hydration as well as IV antibiotics as well as antifungals. We will also consult interventional radiology for possible percutaneous drain placement. Job ID: [id number] DocumentID: [id number] Dictated Date: 08/27/2020 23:04:44 Viscosity Tester Date: 08/27/2020 23:31:03 Dictated By: ANDREW MICHAEL MD
[2020-08-28] MEDS ORDERED: FLUCONAZOLE 200 MG/100 ML 100 ML IV ONE ×3 (00:04→20:13)
[2020-08-28] MEDS ORDERED: fentaNYL INJ 100 MCG/2 ML AMP IVP ONE (00:45)
[2020-08-28 01:05] VITALS: BP 144/73
[2020-08-28] MEDS ORDERED: ACETAMINOPHEN 650 MG SUPP (TYLENOL) PR PRN (01:30)
[2020-08-28] MEDS: HYDROmorphone 2 MG/ML VIAL (DILAUDID) IV PRN ×6 (02:20→22:10)
[2020-08-28] MEDS: ONDANSETRON 4 MG/2 ML (SDV) Z0FRAN IVP PRN ×2 (02:20→19:39)
[2020-08-28] MEDS: MEROPENEM 500 MG/SWFI 10 ML IV PUSH IV SCH ×8 (02:20→19:39)
[2020-08-28] MEDS: LACTATED RINGERS 1,000 ML IV SCH ×4 (02:52→22:24)
[2020-08-28 04:23] LABS: BASOPHILS % (AUTO) 0 % (0-10); EOSINOPHILS % (AUTO) 0 % (0-10); HEMATOCRIT 24 % (35-52); HEMOGLOBIN 7.4 g/dL (11.5-16.0); LYMPHOCYTES % (AUTO) 8 % (12-44); MEAN CORPUSCULAR HEMOGLOBIN 29 pg (25-34); MEAN CORPUSCULAR HGB CONC 31 g/dL (32-36); MEAN CORPUSCULAR VOLUME 95 fL (80-99); MEAN PLATELET VOLUME 10.2 fL (9.0-12.2); MONOCYTES # (AUTO) 0.9 10^3/uL (0.0-1.0); MONOCYTES % (AUTO) 7 % (0-12); NEUTROPHILS # (AUTO) 10.6 10^3/uL (1.8-7.8); NEUTROPHILS % (AUTO) 83 % (42-75); PLATELET COUNT 342 10^3/uL (130-400); WHITE BLOOD COUNT 12.8 10^3/uL (4.3-11.0)
[2020-08-28 04:42] LABS: CHLORIDE 102 MMOL/L (98-107); POTASSIUM 3.1 MMOL/L (3.6-5.0); SODIUM 135 MMOL/L (135-145)
[2020-08-28 04:43] LABS: CALCIUM 7.9 MG/DL (8.5-10.1)
[2020-08-28 04:44] LABS: GLUCOSE 117 MG/DL (70-105)
[2020-08-28 04:45] LABS: CARBON DIOXIDE 22 MMOL/L (21-32)
[2020-08-28 04:47] LABS: PHOSPHORUS 2.7 MG/DL (2.3-4.7)
[2020-08-28 04:48] LABS: CREATININE SERUM 0.66 MG/DL (0.60-1.30); GFR ESTIMATED > 60
[2020-08-28 04:49] LABS: BUN/CREATININE RATIO 6
[2020-08-28 04:50] LABS: MAGNESIUM 1.9 MG/DL (1.6-2.4)
[2020-08-28] MEDS: POTASSIUM CL 10MEQ/50ML IVPB 50 ML IV SCH ×5 (05:39→09:04)
[2020-08-28] MEDS: KCL 20 MEQ TAB (K-DUR) PO SCH (05:39)
[2020-08-28] MEDS: MAGNESIUM 1 GM/100 ML IVPB 100 ML IV SCH (05:39)
--- NOTE | 2020-08-28 06:41 | Diagnostic Imaging Report ---
PROCEDURE: CT angiography of the chest with contrast. TECHNIQUE: Multiple contiguous axial images were obtained through the chest after uneventful bolus administration of intravenous contrast. 3D reconstructed CTA MIP acquisitions were also performed. Auto Exposure Controls were utilized during the CT exam to meet ALARA standards for radiation dose reduction. INDICATION: Dyspnea with fever, recent bariatric surgery. COMPARISON: Chest x-ray 07/12/2018. DISCUSSION: No pulmonary embolus identified. Small to moderate bilateral layering pleural effusions. The thoracic aorta is normal in caliber and configuration. Normal heart size. Atelectasis noted within the lung bases. No consolidation or other suspicious pulmonary lesion. No adenopathy. No osseous abnormality. Postoperative changes of suspected gastric sleeve procedure noted. Just to the left of the stomach, there is a complex gas and fluid collection measuring 7 x 10.5 x 8 cm. This could represent postoperative hematoma though developing abscess is not excluded. There is free air noted within the upper abdomen which could be postoperative in nature though dehiscence of the bariatric surgery is not excluded. Recommend clinical correlation and follow-up as indicated. The gallbladder is surgically absent. IMPRESSION: 1. No pulmonary embolus. 2. Small to moderate bilateral pleural effusions. 3. Complex gas and fluid collection within the upper abdomen just to the left of the stomach as described, possible postoperative hematoma though underlying developing abscess and/or dehiscence of the stomach suture line is not excluded given the amount of free air present. 4. Agree with preliminary report. Dictated by: Dictated on workstation # [id number]
--- NOTE | 2020-08-28 07:44 | Consultation - Hospitalist ---
HPI History of Present Illness: HPI/Chief Complaint Chief complaint: Abdominal pain status post gastric sleeve procedure on 08/16/[address] [facility] History of present illness: This is a 55-year-old white female clinic patient of Yenni Charles in [facility] in [place] who presents to the ER with abdominal pain and fever for the past 10 days following gastric sleeve procedure by Dr. Mei at [facility]. She had an uneventful surgical course but she has been running a low-grade fever and the abdominal yesenia n increased to the point that she can no longer go on and the fever was 102.5. Patient was admitted to the ICU for close monitoring and Dr. Mei assesses it to be a hematoma gets infected she is on Invanz and Diflucan so CT-guided drainage will be performed on Sunday. She will remain in the ICU to be monitored closely. 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 Source: patient Exam Limitations: no limitations Date Seen 08/28/20 Attending Physician Ajit Mei MD [facility] Referring Physician Date of Admission Aug 27, 2020 at 23:30 Home Medications & Allergies Home Medications Reviewed patient Home Medication Reconciliation performed by pharmacy medication reconciliations nuclear medicine technician and/or nursing. Patients Allergies have been reviewed. Allergies Allergies Coded Allergies cefdinir (Verified Allergy, Intermediate, hives, 07/12/18) Penicillins (Verified Allergy, Mild, RASH, 09/10/19) adhesive tape (Verified Allergy, Unknown, rash, 07/12/18) morphine (Verified Adverse Reaction, Mild, nausea and vomiting, 09/10/19) Past Pydlbci-Zfkdem-Pjghkj Hx Patient Social History Marrital Status: Employed/Student: employed Tobacco Use?: No Smoking Status: Never a Smoker Substance use?: No Alcohol Use?: Yes Alcohol type: Wine Alcohol Frequency: Rarely Seasonal Allergies Seasonal Allergies: Yes Current Status status: No Advance Directives: No Communicates: Verbally Primary Language: Icelandic Preferred Spoken Language: Icelandic Is interpretation needed?: No Implanted or Applied Medical D: Orthopedic hardware Past Medical History Surgeries: Appendectomy, Gallbladder, Hysterectomy Currently Using CPAP: No Currently Using BIPAP: No High Cholesterol, Hypertension, Palpitations Headaches /Migraines Sexually Transmitted Disease: No HIV/AIDS: No Gastroesophageal Reflux, Chronic Constipation, Chronic Diarrhea Arthritis Diabetes, Non-Insulin dep Loss of Vision: Denies Hearing Impairment: Denies Anxiety, Depression Blood Disorders: No Adverse Reaction/Blood Tranf: No (HAD BLOOD -NO REACTION) Review of Systems Constitutional: see HPI, fever Gastrointestinal: abdominal pain, loss of appetite Physical Exam Physical Exam Vital Signs Vital Signs - First Documented 08/27/20 08/28/20 21:26 00:00 Temp 39.0 Pulse 90 Resp 18 B/P (MAP) 152/75 (100) Pulse Ox 93 O2 Delivery Room Air O2 Flow Rate 2.00 FiO2 100 Capillary Refill : Less Than 3 Seconds Height, Weight, BMI Height: 5'1.00" Weight: 235lbs. oz. 106.544622cr; 44.77 BMI Method:Stated General Appearance: WD/WN, Anxious, Chronically ill, Mild Distress Eyes: Bilateral Eye Normal Inspection, Bilateral Eye PERRL HEENT: PERRL/EOMI, Normal ENT Inspection, Pharynx Normal Neck: Full Range of Motion, Normal Inspection, Non Tender, Supple, Carotid Bruit Respiratory: Chest Non Tender, Lungs Clear, Normal Breath Sounds, No Accessory Muscle Use, No Respiratory Distress Cardiovascular: Regular Rate, Rhythm, No Edema, No Gallop, No JVD, No Murmur, Normal Peripheral Pulses Gastrointestinal: Normal Bowel Sounds, No Organomegaly, No Pulsatile Mass, Guarding, Tenderness Back: Normal Inspection, No CVA Tenderness, No Vertebral Tenderness Extremity: Normal Capillary Refill, Normal Inspection, Normal Range of Motion, Non Tender, No Calf Tenderness, No Pedal Edema Neurologic/Psychiatric: Alert, Oriented x3, No Motor/Sensory Deficits, Normal Mood/Affect Skin: Normal Color, Warm/Dry Lymphatic: No Adenopathy Results Results/Procedures Labs Laboratory Tests 08/27/20 21:30 08/28/20 03:15 Patient resulted labs reviewed. Assessment/Plan Assessment and Plan Assess & Plan/Chief Complaint Assessment: Sepsis Abdominal pain due to infected hematoma status post [facility] Diabetes Morbid obesity Hyperlipidemia Plan: ICU IV antibiotics IV fluids Pain medication Monitor closely CT-guided drainage on Sunday Diagnosis/Problems Diagnosis/Problems (1) Infected hematoma following procedure (2) Sepsis Status: Acute Qualifiers: Sepsis type: sepsis due to unspecified organism Sepsis acute organ dysfunction status: with acute organ dysfunction Severe sepsis acute organ dysfunction type: acute liver failure Hepatic coma status: without hepatic coma Severe sepsis shock status: without septic shock Qualified Codes: A41.9 - Sepsis, unspecified organism; R65.20 - Severe sepsis without septic shock; K72.00 - Acute and subacute hepatic failure without coma JUAN C GONZALES DO Aug 28, 2020 07:44
[2020-08-28] MEDS: PANTOPRAZOLE 40 MG (PROTONIX) VIAL IV SCH (09:05)
[2020-08-28] MEDS: ENOXAPARIN 40 MG/0.4 ML (LOVENOX) SYR SC SCH ×2 (09:57→20:22)
[2020-08-28] MEDS ORDERED: HYDROcodone/APAP 7.5 MG/325 MG (LORTAB, LORCET PLUS) TABLET PO PRN (11:15)
[2020-08-28] MEDS: IRON SUCROSE 200 MG/10 ML (VENOFER) VIAL IV SCH (14:20)
[2020-08-28] MEDS ORDERED: ENALAPRIL 10 MG (VASOTEC) TAB ONE (15:10)
[2020-08-28] MEDS: ENALAPRIL 10 MG (VASOTEC) TAB PO SCH ×2 (15:16→18:14)
[2020-08-28] MEDS ORDERED: hydrALAZINE (APESOLINE) 20 MG/ML VIAL ONE (17:35)
[2020-08-28] MEDS: hydrALAZINE (APESOLINE) 20 MG/ML VIAL IV PRN (17:41)
[2020-08-28] MEDS ORDERED: LABETALOL HCL 20 MG/4 ML VIAL IV PRN (18:45)
[2020-08-28] MEDS: FLUCONAZOLE 100 MG/50 ML IVPB IV SCH ×2 (20:22)
[2020-08-29] MEDS: ENALAPRIL 10 MG (VASOTEC) TAB PO SCH ×5 (00:04→23:54)
[2020-08-29] MEDS: MEROPENEM 500 MG/SWFI 10 ML IV PUSH IV SCH ×8 (01:49→20:04)
[2020-08-29 03:15] LABS: BASOPHILS % (AUTO) 0 % (0-10); EOSINOPHILS # (AUTO) 0.1 10^3/uL (0.0-0.3); EOSINOPHILS % (AUTO) 1 % (0-10); HEMATOCRIT 24 % (35-52); HEMOGLOBIN 7.1 g/dL (11.5-16.0); LYMPHOCYTES % (AUTO) 9 % (12-44); MEAN CORPUSCULAR HEMOGLOBIN 29 pg (25-34); MEAN CORPUSCULAR HGB CONC 30 g/dL (32-36); MEAN CORPUSCULAR VOLUME 95 fL (80-99); MEAN PLATELET VOLUME 9.6 fL (9.0-12.2); MONOCYTES # (AUTO) 0.9 10^3/uL (0.0-1.0); MONOCYTES % (AUTO) 8 % (0-12); NEUTROPHILS # (AUTO) 9.7 10^3/uL (1.8-7.8); NEUTROPHILS % (AUTO) 82 % (42-75); PLATELET COUNT 328 10^3/uL (130-400); WHITE BLOOD COUNT 11.8 10^3/uL (4.3-11.0)
[2020-08-29 03:29] LABS: CHLORIDE 100 MMOL/L (98-107); POTASSIUM 3.4 MMOL/L (3.6-5.0); SODIUM 136 MMOL/L (135-145)
[2020-08-29 03:31] LABS: CALCIUM 8.3 MG/DL (8.5-10.1); GLUCOSE 111 MG/DL (70-105)
[2020-08-29 03:33] LABS: CARBON DIOXIDE 24 MMOL/L (21-32)
[2020-08-29 03:35] LABS: CREATININE SERUM 0.65 MG/DL (0.60-1.30); GFR ESTIMATED > 60; PHOSPHORUS 2.3 MG/DL (2.3-4.7)
[2020-08-29 03:36] LABS: BUN/CREATININE RATIO 6
[2020-08-29 03:37] LABS: MAGNESIUM 1.8 MG/DL (1.6-2.4)
[2020-08-29] MEDS: POTASSIUM CL 10MEQ/50ML IVPB 50 ML IV SCH ×3 (03:56→05:19)
[2020-08-29] MEDS: MAGNESIUM 1 GM/100 ML IVPB 100 ML IV SCH (03:57)
[2020-08-29] MEDS: KCL 20 MEQ TAB (K-DUR) PO SCH (03:57)
[2020-08-29] MEDS: LACTATED RINGERS 1,000 ML IV SCH ×4 (05:30→23:55)
[2020-08-29] MEDS: HYDROmorphone 2 MG/ML VIAL (DILAUDID) IV PRN ×4 (07:04→19:27)
--- NOTE | 2020-08-29 08:18 | Progress Note - Hospitalist ---
Subjective HPI/CC On Admission Date Seen by Provider: Aug 29, 2020 Time Seen by Provider: 11:00 Chief complaint: Abdominal pain status post gastric sleeve procedure on 08/16/2020 at [facility] History of present illness: This is a 55-year-old white female clinic patient of Yenni Charles in [facility] in [place] who presents to the ER with abdominal pain and fever for the past 10 days following gastric sleeve procedure by Dr. Mei at [facility]. She had an uneventful surgical course but she has been running a low-grade fever and the abdominal pain increased to the point that she can no longer go on and the fever was 102.5. Patient was admitted to the ICU for close monitoring and Dr. Mei assesses it to be a hematoma gets infected she is on Invanz and Diflucan so CT- guided drainage will be performed on Sunday. She will remain in the ICU to be monitored closely. 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 Subjective/Events-last exam Patient much improved Pain is well controlled Dr. Mei wants her to stay in the ICU today CT-guided drainage of hematoma that has become infected tomorrow Denies any new issues Review of Systems General: Fatigue Gastrointestinal: Abdominal Pain Focused Exam Lactate Level 08/27/20 22:17: Lactic Acid Level 0.80 08/27/20 23:33: Lactic Acid Level 0.68 Objective Exam Vital Signs Vital Signs Date Time Temp Pulse Resp B/P (MAP) Pulse Ox O2 Delivery O2 Flow Rate FiO2 08/29/20 18:57 37.6 08/29/20 18:00 106 98 Nasal Cannula 2.00 08/29/20 17:00 21 08/28/20 00:00 100 Capillary Refill : Less Than 3 Seconds General Appearance: No Apparent Distress, WD/WN, Chronically ill, Obese Respiratory: No Accessory Muscle Use, Decreased Breath Sounds Cardiovascular: Regular Rate, Rhythm Neurologic/Psychiatric: Alert, Oriented x3 Results/Procedures Lab Laboratory Tests 08/29/20 02:46 Patient resulted labs reviewed. Assessment/Plan Assessment and Plan Assess & Plan/Chief Complaint Assessment: Sepsis Abdominal pain due to infected hematoma status post gastric sleeve procedure on 08/16/2020 at [place] Hypertension Diabetes Morbid obesity Hyperlipidemia Plan: ICU IV antibiotics IV fluids Pain medication Monitor closely CT-guided drainage on Sunday08/29/2020: Monitor closely CT-guided drainage tomorrow IV antibiotics Diagnosis/Problems Diagnosis/Problems (1) Infected hematoma following procedure (2) Sepsis Status: Acute Qualifiers: Sepsis type: sepsis due to unspecified organism Sepsis acute organ dysfunction status: with acute organ dysfunction Severe sepsis acute organ dysfunction type: acute liver failure Hepatic coma status: without hepatic coma Severe sepsis shock status: without septic shock Qualified Codes: A41.9 - Sepsis, unspecified organism; R65.20 - Severe sepsis without septic shock; K72.00 - Acute and subacute hepatic failure without coma JUAN C GONZALES DO Aug 29, 2020 08:18
[2020-08-29] MEDS: ENOXAPARIN 40 MG/0.4 ML (LOVENOX) SYR SC SCH (08:51)
[2020-08-29] MEDS: PANTOPRAZOLE 40 MG (PROTONIX) VIAL IV SCH (09:06)
--- NOTE | 2020-08-29 09:52 | Progress Note ---
Subjective Date Seen by a Provider: Aug 29, 2020 Time Seen by a Provider: 09:35 Subjective/Events-last exam Pt stable. Pain controlled. Taking clear liquids without difficulty. Abdomen remains tender and pt rates mildly better than yesterday. HGB 7.1 Percutaneous drain planned for tomorrow for abscess/hematoma. Focused Exam Lactate Level 08/27/20 22:17: Lactic Acid Level 0.80 08/27/20 23:33: Lactic Acid Level 0.68 Objective Exam Last Set of Vital Signs Vital Signs Date Time Temp Pulse Resp B/P (MAP) Pulse Ox O2 Delivery O2 Flow Rate FiO2 08/29/20 09:00 99 30 152/72 (98) 97 Nasal Cannula 2.00 08/29/20 08:00 35.8 08/28/20 00:00 100 Capillary Refill : Less Than 3 Seconds I&O Intake and Output 08/29/20 00:00 Intake Total 3505 ml Balance 3505 ml Intake Oral 1155 ml IV Total 2350 ml # Voids 15 # Bowel Movements 2 Daily Weight Change No Results Lab Laboratory Tests 08/28/20 10:17: Glucometer 115H 08/28/20 17:27: Glucometer 106 08/28/20 20:27: Glucometer 133H 08/29/20 02:46: White Blood Count 11.8H, Red Blood Count 2.49L, Hemoglobin 7.1L, Hematocrit 24L, Mean Corpuscular Volume 95, Mean Corpuscular Hemoglobin 29, Mean Corpuscular Hemoglobin Concent 30L, Red Cell Distribution Width 15.4H, Platelet Count 328, Mean Platelet Volume 9.6, Immature Granulocyte % (Auto) 1, Neutrophils (%) (Auto) 82H, Lymphocytes (%) (Auto) 9L, Monocytes (%) (Auto) 8, Eosinophils (%) (Auto) 1, Basophils (%) (Auto) 0, Neutrophils # (Auto) 9.7H, Lymphocytes # (Auto) 1.0, Monocytes # (Auto) 0.9, Eosinophils # (Auto) 0.1, Basophils # (Auto) 0.0, Immature Granulocyte # (Auto) 0.1, Sodium Level 136, Potassium Level 3.4L, Chloride Level 100, Carbon Dioxide Level 24, Anion Gap 12, Blood Urea Nitrogen 4L, Creatinine 0.65, Estimat Glomerular Filtration Rate > 60, BUN/Creatinine Ratio 6, Glucose Level 111H, Calcium Level 8.3L, Phosphorus Level 2.3, Magnesium Level 1.8 Microbiology 08/28/20 MRSA Screen - Final, Complete MRSA not isolated 08/27/20 Blood Culture - Preliminary, Resulted No growth 08/27/20 Urine Culture - Preliminary, Resulted Enterococcus species Gram Pos Mixed Bacterial Rocío ARLENE AVILA Aug 29, 2020 09:52
--- NOTE | 2020-08-29 10:32 | Progress Note ---
Subjective Date Seen by a Provider: Aug 29, 2020 Time Seen by a Provider: 10:00 Subjective/Events-last exam doing ok. moderate abd pain. states fevers improving. tolerating clears and having multiple loose stools. Focused Exam Lactate Level 08/27/20 22:17: Lactic Acid Level 0.80 08/27/20 23:33: Lactic Acid Level 0.68 Objective Exam Vital Signs Date Time Temp Pulse Resp B/P (MAP) Pulse Ox O2 Delivery O2 Flow Rate FiO2 08/29/20 10:00 93 152/71 (98) 96 Nasal Cannula 2.00 08/29/20 09:00 99 30 152/72 (98) 97 Nasal Cannula 2.00 08/29/20 08:16 Nasal Cannula 2.00 08/29/20 08:00 35.8 08/29/20 08:00 98 160/76 (104) 97 Nasal Cannula 2.00 08/29/20 07:00 96 161/81 (107) 97 Nasal Cannula 2.00 08/29/20 07:00 91 08/29/20 06:00 92 156/81 (106) 98 Nasal Cannula 2.00 08/29/20 05:00 91 155/80 (105) 98 Nasal Cannula 2.00 08/29/20 04:00 92 154/77 (102) 97 Nasal Cannula 2.00 08/29/20 03:53 37.6 08/29/20 03:26 Nasal Cannula 2.00 08/29/20 03:00 93 145/94 (111) 98 Nasal Cannula 2.00 08/29/20 02:00 92 163/75 (104) 98 Nasal Cannula 2.00 08/29/20 01:00 93 20 149/96 (113) 97 Nasal Cannula 2.00 08/29/20 01:00 94 08/29/20 00:00 92 19 154/81 (105) 97 Nasal Cannula 2.00 08/28/20 23:50 36.8 08/28/20 23:18 Nasal Cannula 2.00 08/28/20 23:00 95 17 171/80 (110) 97 Nasal Cannula 2.00 08/28/20 22:00 115 173/96 (121) 96 Nasal Cannula 2.00 08/28/20 21:00 91 161/92 (115) 97 Nasal Cannula 2.00 08/28/20 20:07 Nasal Cannula 2.00 08/28/20 20:00 94 169/81 (110) 97 Nasal Cannula 2.00 08/28/20 19:23 36.7 101 22 194/102 (132) 95 Nasal Cannula 2.00 08/28/20 19:00 96 08/28/20 19:00 95 24 157/79 (105) 96 Nasal Cannula 2.00 08/28/20 18:56 97 Nasal Cannula 2.00 08/28/20 18:07 37.2 08/28/20 18:00 93 23 184/93 (123) 96 Nasal Cannula 2.00 08/28/20 17:00 88 17 182/94 (123) 98 Nasal Cannula 2.00 08/28/20 16:00 Nasal Cannula 2.00 08/28/20 16:00 86 31 180/89 (119) 99 Nasal Cannula 2.00 08/28/20 15:00 86 19 188/85 (119) 98 Nasal Cannula 2.00 08/28/20 14:00 88 27 155/75 (101) 98 Nasal Cannula 2.00 08/28/20 13:00 89 20 179/79 (112) 98 Nasal Cannula 2.00 08/28/20 12:38 88 08/28/20 12:15 Nasal Cannula 2.00 08/28/20 12:00 36.5 08/28/20 12:00 88 25 165/79 (107) 98 Nasal Cannula 2.00 08/28/20 11:00 100 23 161/87 (111) 99 Nasal Cannula 2.00 I & O 08/29/20 07:00 Intake Total 3555 ml Balance 3555 ml Capillary Refill : Less Than 3 Seconds General Appearance: No Apparent Distress HEENT: PERRL/EOMI Neck: Full Range of Motion Respiratory: Chest Non Tender, Lungs Clear, Normal Breath Sounds Cardiovascular: Regular Rate, Rhythm Gastrointestinal: normal bowel sounds, soft, distended, tenderness Extremity: Normal Capillary Refill Neurologic/Psychiatric: Alert, Oriented x3 Skin: Normal Color Lymphatic: No Adenopathy Results Lab Laboratory Tests 08/28/20 17:27: Glucometer 106 08/28/20 20:27: Glucometer 133H 08/29/20 02:46: White Blood Count 11.8H, Red Blood Count 2.49L, Hemoglobin 7.1L, Hematocrit 24L, Mean Corpuscular Volume 95, Mean Corpuscular Hemoglobin 29, Mean Corpuscular Hemoglobin Concent 30L, Red Cell Distribution Width 15.4H, Platelet Count 328, Mean Platelet Volume 9.6, Immature Granulocyte % (Auto) 1, Neutrophils (%) (Auto) 82H, Lymphocytes (%) (Auto) 9L, Monocytes (%) (Auto) 8, Eosinophils (%) (Auto) 1, Basophils (%) (Auto) 0, Neutrophils # (Auto) 9.7H, Lymphocytes # ( Auto) 1.0, Monocytes # (Auto) 0.9, Eosinophils # (Auto) 0.1, Basophils # (Auto) 0.0, Immature Granulocyte # (Auto) 0.1, Sodium Level 136, Potassium Level 3.4L, Chloride Level 100, Carbon Dioxide Level 24, Anion Gap 12, Blood Urea Nitrogen 4L, Creatinine 0.65, Estimat Glomerular Filtration Rate > 60, BUN/Creatinine Ratio 6, Glucose Level 111H, Calcium Level 8.3L, Phosphorus Level 2.3, Magnesium Level 1.8 08/29/20 10:26: Glucometer 131H Microbiology 08/28/20 MRSA Screen - Final, Complete MRSA not isolated 08/27/20 Blood Culture - Preliminary, Resulted No growth 08/27/20 Urine Culture - Preliminary, Resulted Enterococcus species Gram Pos Mixed Bacterial Rocío Assessment/Plan Assessment/Plan Assess & Plan/Chief Complaint intraabdominal hematoma/abscess s/p lap gastric sleeve resection POD#13 consult radiology for percutaneous drain placement. cont IV abx. monitor Hb. ANDREW MICHAEL MD Aug 29, 2020 10:32
[2020-08-29] MEDS: hydrALAZINE (APESOLINE) 20 MG/ML VIAL IV PRN ×2 (14:09→21:09)
[2020-08-29] MEDS ORDERED: LABETALOL HCL 20 MG/4 ML VIAL IV PRN (15:30)
[2020-08-29 16:14] LABS: ABG BASE EXCESS 3.9 MMOL/L (-2.5-2.5); ABG OXYGEN SATURATION 99 % (94-100); ABG PCO2 40 MMHG (35-45); ABG PH 7.46 (7.37-7.43); ABG PO2 102 MMHG (79-93); ABG TCO2 28.4 MMOL/L (21.0-31.0)
[2020-08-29 16:16] LABS: ALLENS TEST YES-POS; INSPIRED O2 2L NC; PATIENT TEMP 38.8; VENTILATOR NO
[2020-08-29] MEDS: ONDANSETRON 4 MG/2 ML (SDV) Z0FRAN IVP PRN (16:16)
[2020-08-29] MEDS: ACETAMINOPHEN 325 MG TABLET PO PRN (16:27)
[2020-08-29] MEDS: PROMETHAZINE INJ 25 MG/ML (PHENERGAN) AMP IVP PRN (19:22)
[2020-08-29] MEDS: FLUCONAZOLE 100 MG/50 ML IVPB IV SCH ×2 (20:06)
[2020-08-30] MEDS: ONDANSETRON 4 MG/2 ML (SDV) Z0FRAN IVP PRN ×4 (00:15→21:50)
[2020-08-30] MEDS: MEROPENEM 500 MG/SWFI 10 ML IV PUSH IV SCH ×8 (02:21→20:17)
[2020-08-30 02:47] LABS: BASOPHILS % (AUTO) 0 % (0-10); EOSINOPHILS # (AUTO) 0.1 10^3/uL (0.0-0.3); EOSINOPHILS % (AUTO) 1 % (0-10); HEMATOCRIT 23 % (35-52); LYMPHOCYTES # (AUTO) 0.7 10^3/uL (1.0-4.0); LYMPHOCYTES % (AUTO) 8 % (12-44); MEAN CORPUSCULAR HEMOGLOBIN 29 pg (25-34); MEAN CORPUSCULAR HGB CONC 31 g/dL (32-36); MEAN CORPUSCULAR VOLUME 95 fL (80-99); MEAN PLATELET VOLUME 9.8 fL (9.0-12.2); MONOCYTES # (AUTO) 0.7 10^3/uL (0.0-1.0); MONOCYTES % (AUTO) 8 % (0-12); NEUTROPHILS # (AUTO) 7.9 10^3/uL (1.8-7.8); NEUTROPHILS % (AUTO) 83 % (42-75); PLATELET COUNT 374 10^3/uL (130-400); WHITE BLOOD COUNT 9.6 10^3/uL (4.3-11.0)
[2020-08-30 02:51] LABS: HEMOGLOBIN 6.9 g/dL (11.5-16.0)
[2020-08-30 03:00] LABS: CHLORIDE 102 MMOL/L (98-107); POTASSIUM 3.4 MMOL/L (3.6-5.0); SODIUM 139 MMOL/L (135-145)
[2020-08-30 03:01] LABS: CALCIUM 8.5 MG/DL (8.5-10.1)
[2020-08-30 03:02] LABS: GLUCOSE 117 MG/DL (70-105)
[2020-08-30 03:03] LABS: CARBON DIOXIDE 25 MMOL/L (21-32)
[2020-08-30 03:06] LABS: CREATININE SERUM 0.61 MG/DL (0.60-1.30); GFR ESTIMATED > 60; PHOSPHORUS 2.5 MG/DL (2.3-4.7)
[2020-08-30 03:07] LABS: BUN/CREATININE RATIO 7
[2020-08-30] MEDS: POTASSIUM CL 10MEQ/50ML IVPB 50 ML IV SCH ×3 (03:27→04:20)
[2020-08-30] MEDS: hydrALAZINE (APESOLINE) 20 MG/ML VIAL IV PRN ×2 (04:18→20:20)
[2020-08-30] MEDS: KCL 20 MEQ TAB (K-DUR) PO SCH (04:20)
[2020-08-30] MEDS: MAGNESIUM 1 GM/100 ML IVPB 100 ML IV SCH (04:20)
[2020-08-30] MEDS: ENALAPRIL 10 MG (VASOTEC) TAB PO SCH ×3 (06:04→19:21)
[2020-08-30] MEDS: LACTATED RINGERS 1,000 ML IV SCH ×2 (06:07→13:17)
[2020-08-30] MEDS: PANTOPRAZOLE 40 MG (PROTONIX) VIAL IV SCH (08:04)
[2020-08-30] MEDS: IRON SUCROSE 200 MG/10 ML (VENOFER) VIAL IV SCH (08:33)
[2020-08-30] MEDS: PROMETHAZINE INJ 25 MG/ML (PHENERGAN) AMP IVP PRN (10:28)
[2020-08-30] MEDS ORDERED: SUMA100T3 PO (11:56)
[2020-08-30] MEDS ORDERED: LOPE-175 PO (11:56)
[2020-08-30] MEDS ORDERED: CHOL100048 PO (11:56)
[2020-08-30] MEDS ORDERED: ALPR0.5T7 PO ×2 (11:56)
[2020-08-30] MEDS ORDERED: SIME125T PO (11:56)
[2020-08-30] MEDS ORDERED: ONDA4TAB11 PO (11:56)
[2020-08-30] MEDS ORDERED: ASCO500T17 PO (11:56)
[2020-08-30] MEDS ORDERED: CYAN500T8 PO (12:00)
[2020-08-30] MEDS ORDERED: HOLD METFORMIN - RECEIVED CONTRAST 20 ML VIAL IV SCH (12:30)
[2020-08-30] MEDS ORDERED: NS 100 ML (IVPB) BAG IV ONE (12:30)
[2020-08-30] MEDS ORDERED: CATHETER FLUSH 10 ML SYR IV PRN (12:30)
[2020-08-30] MEDS ORDERED: DIATRIZOATE MEGLUM/SODIUM 37% 120 ML (GASTROGRAFIN) PO ONE (12:30)
[2020-08-30] MEDS ORDERED: IOHEXOL 350 MG/ML 100 ML (OMNIPAQUE 350) VIAL IV ONE (12:30)
--- NOTE | 2020-08-30 12:35 | Pulmonary Progress Note ---
Subjective Date Seen by a Provider: Aug 30, 2020 Time Seen by a Provider: 12:30 Sepsis Event Evaluation Height, Weight, BMI Height: 5'1.00" Weight: 235lbs. oz. 106.941194pt; 44.77 BMI Method:Stated Focused Exam Lactate Level 08/27/20 22:17: Lactic Acid Level 0.80 08/27/20 23:33: Lactic Acid Level 0.68 Exam Exam Vital Signs Date Time Temp Pulse Resp B/P (MAP) Pulse Ox O2 Delivery O2 Flow Rate FiO2 08/30/20 10:00 96 13 162/63 (96) 98 Nasal Cannula 2.00 08/30/20 09:00 93 26 171/87 (115) 98 Nasal Cannula 2.00 08/30/20 08:00 92 36 160/85 (110) 99 Nasal Cannula 2.00 08/30/20 07:57 36.6 08/30/20 07:30 Nasal Cannula 2.00 08/30/20 07:00 93 29 159/75 (103) 99 Nasal Cannula 2.00 08/30/20 06:46 96 08/30/20 06:00 95 38 166/83 (95) 98 Nasal Cannula 2.00 08/30/20 05:00 96 38 146/78 (103) 99 Nasal Cannula 2.00 08/30/20 04:58 Nasal Cannula 2.00 08/30/20 04:01 37.0 08/30/20 04:00 89 25 171/96 (118) 100 Nasal Cannula 2.00 08/30/20 04:00 Nasal Cannula 2.00 08/30/20 03:00 90 23 158/78 (95) 100 Nasal Cannula 2.00 08/30/20 02:00 92 28 156/84 (108) 99 Nasal Cannula 2.00 08/30/20 01:00 96 21 156/88 (112) 99 Nasal Cannula 2.00 08/30/20 01:00 96 08/30/20 00:17 96 36 150/83 (105) 100 Nasal Cannula 2.00 08/30/20 00:03 37.5 08/29/20 23:59 Nasal Cannula 2.00 08/29/20 23:00 99 25 160/91 (123) 99 Nasal Cannula 2.00 08/29/20 22:00 103 32 172/84 (119) 100 Nasal Cannula 2.00 08/29/20 21:30 101 26 156/75 (90) 99 Nasal Cannula 2.00 08/29/20 21:00 98 170/72 (112) 100 Nasal Cannula 2.00 08/29/20 20:00 93 26 172/86 (108) 100 Nasal Cannula 2.00 08/29/20 20:00 Nasal Cannula 2.00 08/29/20 19:14 91 23 127/66 (76) 100 Nasal Cannula 2.00 08/29/20 19:00 92 08/29/20 18:57 37.6 08/29/20 18:00 106 98 Nasal Cannula 2.00 08/29/20 17:00 98 21 97 Nasal Cannula 2.00 08/29/20 16:27 38.8 08/29/20 16:15 38.8 08/29/20 16:00 105 166/77 (106) 97 Nasal Cannula 2.00 08/29/20 16:00 Nasal Cannula 2.00 08/29/20 15:00 101 173/93 (124) 100 Nasal Cannula 2.00 08/29/20 14:00 102 183/88 (117) 97 Nasal Cannula 2.00 08/29/20 13:00 101 179/90 (119) 99 Nasal Cannula 2.00 08/29/20 12:40 99 I & O 08/30/20 07:00 Intake Total 1170 ml Balance 1170 ml Height & Weight Height: 5'1.00" Weight: 235lbs. oz. 106.458392gz; 44.77 BMI Method:Stated General Appearance: No Apparent Distress, WD/WN, Chronically ill, Obese HEENT: PERRL/EOMI Neck: Full Range of Motion Respiratory: No Accessory Muscle Use, Decreased Breath Sounds Cardiovascular: Regular Rate, Rhythm Capillary Refill: Less Than 3 Seconds Gastrointestinal: normal bowel sounds, soft, distended, tenderness Extremity: Normal Capillary Refill Neurologic/Psychiatric: Alert, Oriented x3 Skin: Normal Color Lymphatic: No Adenopathy Results Lab Laboratory Tests 08/29/20 02:46 08/30/20 02:32 Assessment/Plan Assessment/Plan Available chart/ vitals / labs / Images reviewed Video assessment done using teleICU camera Discussed with RN Events overnight : Afebrile ,hemodynamically stable, no pressors Drips: LR 150 Consultants: Hospital course: 08/27 admitted - Abdominal pain due to infected hematoma A/P Abdominal pain due to infected hematoma status post gastric sleeve procedure on 08/16/2020 at [place] -CT-guided drainage? - repeated Ct pending - IV ABX ( merrem 08/28, fluconazole 08/28 Sepsis - off pressors Hypertension- controlled Diabetes- BS controlled Morbid obesity Lines : Vazquez: Nutrition: NPO today DVT proph: SCD Plans in collaboration with bedside consultants and IM MDs. Discussed with RN to reach out if any questions or concerns A total of 20 minutes of critical care time was devoted to this patient today, required to treat and/or prevent further deterioration of critical care condition ( as above ) . LISBET RAHMAN MD Aug 30, 2020 12:35
--- NOTE | 2020-08-30 14:02 | Diagnostic Imaging Report ---
PROCEDURE: CT abdomen and pelvis with contrast. TECHNIQUE: Multiple contiguous axial images were obtained through the abdomen and pelvis after administration of intravenous contrast. Auto Exposure Controls were utilized during the CT exam to meet ALARA standards for radiation dose reduction. All CT scans use one or more of the following dose optimizing techniques: automated exposure control, MA and/or KvP adjustment based on patient size and exam type or iterative reconstruction. INDICATION: Abdominal pain, abscess. The CTA chest exam performed on 08/27/2020 noted a complex gas and fluid collection within the upper abdomen just to left of the stomach. It was uncertain whether this is related to a postoperative hematoma or a developing abscess. On this exam there now does appear to be an abscess in this region. The abscess measures 7.3 x 10.0 cm. The abscess is contiguous with the body and tail of the pancreas. I do feel that this abscess could be percutaneously drained. However there is also a bilobed 1.6 x 2.1 cm area of enhancement along the anterior aspect of the splenic hilum. This finding is suspicious for a pseudoaneurysm. I would recommend that an abdominal arteriogram be performed to better evaluate this finding. I would also suggest that the arteriogram be conducted prior to the drainage of the abscess. There is some fluid about the liver and in both paracolic gutters and there is a moderate amount of free fluid low in the pelvis on the right. There is no other mass or abscess identified. The major solid organs appear to be unremarkable for an acute abnormality. The postsurgical changes involving the stomach seen previously are again evident and no different. There is persistent involvement of both lung bases by atelectasis/infiltrate and fluid. The bone windows are unremarkable for a fracture or for destructive lesion. IMPRESSION: 1. In the interval since the prior exam the suspected abscess in the left upper quadrant has increased in size. There also appears to be a window for percutaneous drainage of the abscess. However, the bilobed area of enhancement in the region of the splenic hilum does suggest a pseudoaneurysm.. An abdominal arteriogram would be recommended to better evaluate this finding. The arteriogram should be performed before the abscess drainage. 2. There is a small amount of fluid in both paracolic gutters and a moderate amount of free fluid in the pelvis. There is no other mass or abscess identified. 3. There is persistent involvement of both lung bases by atelectasis/infiltrate and fluid. 4. These results were discussed with Dr. Mei at the time of this dictation. Dictated by: Dictated on workstation # [id number]
[2020-08-30] MEDS ORDERED: LORazepam INJ 2 MG/ML (ATIVAN) VIAL IVP PRN (14:45)
--- NOTE | 2020-08-30 15:43 | Progress Note ---
Subjective Subjective/Events-last exam Patient very upset that procedure has not been done. She is still having moderate pain with any activity. NPO today. Review of Systems Pulmonary: No Dyspnea, No Cough Cardiovascular: No: Chest Pain, Palpitations Gastrointestinal: Nausea, Abdominal Pain; No: Vomiting Musculoskeletal: back pain Neurological: No: Weakness Focused Exam Lactate Level 08/27/20 22:17: Lactic Acid Level 0.80 08/27/20 23:33: Lactic Acid Level 0.68 Objective Exam Last Set of Vital Signs Vital Signs Date Time Temp Pulse Resp B/P (MAP) Pulse Ox O2 Delivery O2 Flow Rate FiO2 08/30/20 13:15 37.0 87 20 162/74 (103) 98 Nasal Cannula 2.00 08/28/20 00:00 100 Capillary Refill : Less Than 3 Seconds I&O Intake and Output 08/30/20 00:00 Intake Total 1370 ml Balance 1370 ml Intake Oral 1370 ml # Voids 14 # Bowel Movements 2 General: Alert, Oriented X3, No Acute Distress Lungs: Clear to Auscultation, Normal Air Movement Heart: Regular Rate, No Murmurs Abdomen: Normal Bowel Sounds, Soft, Other (Diffuse ttp) Extremities: No Edema, No Tenderness/Swelling Neuro: Normal Speech, Cranial Nerves 3-12 NL Results/Procedures Lab Laboratory Tests 08/29/20 15:55: Glucometer 144H 08/29/20 16:08: Blood Gas Puncture Site LEFT RADIAL, Blood Gas Patient Temperature 38.8, A rterial Blood pH 7.46H, Arterial Blood Partial Pressure CO2 40, Arterial Blood Partial Pressure O2 102H, Arterial Blood HCO3 27, Arterial Blood Total CO2 28.4, Arterial Blood Oxygen Saturation 99, Arterial Blood Base Excess 3.9H, Socrates Test YES-POS, Blood Gas Ventilator Setting NO, Blood Gas Inspired Oxygen 2L NC 08/29/20 21:02: Glucometer 129H 08/30/20 02:32: White Blood Count 9.6, Red Blood Count 2.38L, Hemoglobin 6.9*L, Hematocrit 23L, Mean Corpuscular Volume 95, Mean Corpuscular Hemoglobin 29, Mean Corpuscular Hemoglobin Concent 31L, Red Cell Distribution Width 15.3H, Platelet Count 374, Mean Platelet Volume 9.8, Immature Granulocyte % (Auto) 1, Neutrophils (%) (Auto) 83H, Lymphocytes (%) (Auto) 8L, Monocytes (%) (Auto) 8, Eosinophils (%) (Auto) 1, Basophils (%) (Auto) 0, Neutrophils # (Auto) 7.9H, Lymphocytes # (Auto) 0.7L, Monocytes # (Auto) 0.7, Eosinophils # (Auto) 0.1, Basophils # (Auto) 0.0, Immature Granulocyte # (Auto) 0.1, Sodium Level 139, Potassium Level 3.4L, Chloride Level 102, Carbon Dioxide Level 25, Anion Gap 12, Blood Urea Nitrogen 4L, Creatinine 0.61, Estimat Glomerular Filtration Rate > 60, BUN/Creatinine Ratio 7, Glucose Level 117H, Calcium Level 8.5, Phosphorus Level 2.5, Magnesium Level 2.0 Microbiology 08/28/20 MRSA Screen - Final, Complete MRSA not isolated 08/27/20 Blood Culture - Preliminary, Resulted No growth 08/27/20 Urine Culture - Preliminary, Resulted Enterococcus faecalis Gram Pos Mixed Bacterial Rocío Assessment/Plan Assessment/Plan (1) Sepsis Status: Acute Assessment & Plan: 08/30: Improved, will get CMP to monitor bili, HDS, continue IV antibiotics Qualifiers: Qualified Codes: A41.9 - Sepsis, unspecified organism; R65.20 - Severe sepsis without septic shock; K72.00 - Acute and subacute hepatic failure without coma (2) Intra-abdominal abscess post-procedure Status: Acute Assessment & Plan: 08/30: Waiting on CT guided drain placement (3) Infected hematoma following procedure Status: Acute (4) Normocytic anemia due to blood loss Status: Acute Assessment & Plan: 08/30: Patient on IV venofer (5) HTN (hypertension) Status: Chronic Qualifiers: Qualified Codes: I10 - Essential (primary) hypertension (6) Type 2 diabetes mellitus Status: Chronic Qualifiers: Qualified Codes: E11.65 - Type 2 diabetes mellitus with hyperglycemia; 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
[2020-08-30] MEDS ORDERED: RT-ALBUTEROL/IPRATROPIUM 3 ML (DUONEB) VIAL INH PRN (16:00)
[2020-08-30] MEDS ORDERED: RT-ALBUTEROL/IPRATROPIUM 3 ML (DUONEB) VIAL ONE (16:01)
--- NOTE | 2020-08-30 16:34 | Physician Query Clarification ---
Physician Query-General Query to Physician: The medical record reflects the following clinical scenario: The patient, in the setting of History/Risk factors, Recent abdominal surgery, abdominal hematoma/abscess Clinical Findings Admission VS/Labs HR 90, SpO2 93% sat on room air T 39.0, WBC 15.5, Treatment in the ER: 3 L normal saline, fluconazole IV, levofloxacin IV, metronidazole IV, ICU admission, Question: Do you agree with the impression of Sepsis per Smooth Payan and Larry Rosa? 1. Yes; will document Sepsis present on admission in the Progress Notes 2. No; will continue current documentation in the Progress Notes 3. Other; will document explanation of clinical findings 4. Clinically undetermined; no explanation for clinical findings Please clarify and document your clinical opinion in the Progress Notes and Discharge Summary including the definitive and/or presumptive diagnosis, (suspected or probable), related to the above clinical findings. Please include clinical findings supporting your diagnosis. In responding to this query, please exercise your independent professional ju dgment. The purpose of this communication is to more accurately reflect the complexity of your patients condition. The fact that a question is asked does not imply that any particular answer is desired or expected. Please remember a lack of response to the above will prompt a phone page by CDI/coding staff Thank you for timely response to this clarification. Makayla Parson MSN, RN [phone] [email or web address] PHYSICIAN RESPONSE: Based on the clinical findings in the record, please respond to the query above on this document as an addendum. Physician Response: Physician Response 1. If you have questions please contact: Help Desk Coordinator: Ext: Thank you for your time and cooperation. Clinical Marble Chip [employer]ra[employer] Worker/Help Desk Coordinator This is a permanent part of the medical record MAKAYLA PARSON Aug 30, 2020 16:34 ANDREW MICHAEL MD Aug 30, 2020 18:15
--- NOTE | 2020-08-30 16:47 | Physician Query Clarification ---
Physician Query-General Query to Physician: The medical record reflects the following clinical scenario: The patient, in the setting of History/Risk factors, Recent Abdominal surgery, Abdominal Hematoma/Abscess Clinical Findings CT findings "possible postoperative hematoma though underlying developing abscess and/or dehiscence of the stomach suture line is not excluded given the amount of free air present". Documentation of "intraabdominal abscess" Treatment Percutaneous drain placement, IV ABX, Question: Can you specify if the intraabdominal abscess is due to/associated with the recent Gastric Sleeve Surgery? 1. Yes - intraabdominal abscess is due to/associated with gastric sleeve surgery 2. No - intraabdominal abscess is not due to/associated with gastric sleeve surgery 3. Other, with explanation of the clinical findings 4. Clinically undetermined, no explanation for the clinical findings Please clarify and document your clinical opinion in the Progress Notes and Discharge Summary including the definitive and/or presumptive diagnosis, (suspected or probable), related to the above clinical findings. Please include clinical findings supporting your diagnosis. In responding to this query, please exercise your independent professional judgment. The purpose of this communication is to more accurately reflect the complexity of your patients condition. The fact that a question is asked does not imply that any particular answer is desired or expected. Please remember a lack of response to the above will prompt a phone page by CDI/coding staff Thank you for timely response to this clarification. Makayla Parson MSN, RN [phone] [email or web address] PHYSICIAN RESPONSE: Based on the clinical findings in the record, please respond to the query above on this document as an addendum. Physician Response: Physician Response 3. late presentation. could be due to gastric sleeve however can occur with other medical problems If you have questions please contact: Diabetes Education Coordinator: Ext: Thank you for your time and cooperation. Clinical [place] Supervisor/Diabetes Education Coordinator This is a permanent part of the medical record MAKAYLA PARSON Aug 30, 2020 16:47 ANDREW MICHAEL MD Aug 30, 2020 18:18
[2020-08-30] MEDS: ACETAMINOPHEN 325 MG TABLET PO PRN (17:14)
--- NOTE | 2020-08-30 18:13 | Progress Note ---
Subjective Date Seen by a Provider: Aug 30, 2020 Time Seen by a Provider: 18:00 Subjective/Events-last exam doing ok. pain controlled. no fever/chills. tolerating clears and having BM's. repeat CT abd/pelvis showed intraabdominal abscess and splenic hilum pseudoaneurysm. Focused Exam Lactate Level 08/27/20 22:17: Lactic Acid Level 0.80 08/27/20 23:33: Lactic Acid Level 0.68 Objective Exam Vital Signs Date Time Temp Pulse Resp B/P (MAP) Pulse Ox O2 Delivery O2 Flow Rate FiO2 08/30/20 16:43 93 24 156/72 (100) 100 Nasal Cannula 2.00 08/30/20 16:02 94 Nasal Cannula 2.00 08/30/20 16:00 36.9 08/30/20 15:31 Nasal Cannula 2.00 08/30/20 13:15 37.0 87 20 162/74 (103) 98 Nasal Cannula 2.00 08/30/20 12:32 87 08/30/20 10:00 96 13 162/63 (96) 98 Nasal Cannula 2.00 08/30/20 09:00 93 26 171/87 (115) 98 Nasal Cannula 2.00 08/30/20 08:00 92 36 160/85 (110) 99 Nasal Cannula 2.00 08/30/20 07:57 36.6 08/30/20 07:30 Nasal Cannula 2.00 08/30/20 07:00 93 29 159/75 (103) 99 Nasal Cannula 2.00 08/30/20 06:46 96 08/30/20 06:00 95 38 166/83 (95) 98 Nasal Cannula 2.00 08/30/20 05:00 96 38 146/78 (103) 99 Nasal Cannula 2.00 08/30/20 04:58 Nasal Cannula 2.00 08/30/20 04:01 37.0 08/30/20 04:00 89 25 171/96 (118) 100 Nasal Cannula 2.00 08/30/20 04:00 Nasal Cannula 2.00 08/30/20 03:00 90 23 158/78 (95) 100 Nasal Cannula 2.00 08/30/20 02:00 92 28 156/84 (108) 99 Nasal Cannula 2.00 08/30/20 01:00 96 21 156/88 (112) 99 Nasal Cannula 2.00 08/30/20 01:00 96 08/30/20 00:17 96 36 150/83 (105) 100 Nasal Cannula 2.00 08/30/20 00:03 37.5 08/29/20 23:59 Nasal Cannula 2.00 08/29/20 23:00 99 25 160/91 (123) 99 Nasal Cannula 2.00 08/29/20 22:00 103 32 172/84 (119) 100 Nasal Cannula 2.00 08/29/20 21:30 101 26 156/75 (90) 99 Nasal Cannula 2.00 08/29/20 21:00 98 170/72 (112) 100 Nasal Cannula 2.00 08/29/20 20:00 93 26 172/86 (108) 100 Nasal Cannula 2.00 08/29/20 20:00 Nasal Cannula 2.00 08/29/20 19:14 91 23 127/66 (76) 100 Nasal Cannula 2.00 08/29/20 19:00 92 08/29/20 18:57 37.6 I & O 08/30/20 07:00 Intake Total 1170 ml Balance 1170 ml Capillary Refill : Less Than 3 Seconds General Appearance: No Apparent Distress HEENT: PERRL/EOMI Neck: Full Range of Motion Respiratory: Chest Non Tender, Normal Breath Sounds Cardiovascular: Regular Rate, Rhythm Gastrointestinal: normal bowel sounds, soft, tenderness Extremity: Normal Capillary Refill Neurologic/Psychiatric: Alert, Oriented x3 Skin: Normal Color Lymphatic: No Adenopathy Results Lab Laboratory Tests 08/29/20 21:02: Glucometer 129H 08/30/20 02:32: White Blood Count 9.6, Red Blood Count 2.38L, Hemoglobin 6.9*L, Hematocrit 23L, Mean Corpuscular Volume 95, Mean Corpuscular Hemoglobin 29, Mean Corpuscular Hemoglobin Concent 31L, Red Cell Distribution Width 15.3H, Platelet Count 374, Mean Platelet Volume 9.8, Immature Granulocyte % (Auto) 1, Neutrophils (%) (Auto) 83H, Lymphocytes (%) (Auto) 8L, Monocytes (%) (Auto) 8, Eosinophils (%) (Auto) 1, Basophils (%) (Auto) 0, Neutrophils # (Auto) 7.9H, Lymphocytes # (Auto) 0.7L, Monocytes # (Auto) 0.7, Eosinophils # (Auto) 0.1, Basophils # (Auto) 0.0, Immature Granulocyte # (Auto) 0.1, Sodium Level 139, Potassium Level 3.4L, Chloride Level 102, Carbon Dioxide Level 25, Anion Gap 12, Blood Urea Nitrogen 4L, Creatinine 0.61, Estimat Glomerular Filtration Rate > 60, BUN/Creatinine Ratio 7, Glucose Level 117H, Calcium Level 8.5, Phosphorus Level 2.5, Magnesium Level 2.0 08/30/20 15:44: Glucometer 110 Microbiology 08/28/20 MRSA Screen - Final, Complete MRSA not isolated 08/27/20 Blood Culture - Preliminary, Resulted No growth 08/27/20 Urine Culture - Preliminary, Resulted Enterococcus faecalis Gram Pos Mixed Bacterial [place] Assessment/Plan Assessment/Plan Assess & Plan/Chief Complaint 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 cont IV abx. monitor Hb. ANDREW MICHAEL MD Aug 30, 2020 18:13
[2020-08-30] MEDS: FLUCONAZOLE 100 MG/50 ML IVPB IV SCH ×2 (20:17)
== END 2020-08-30 22:15 | disposition short-term general hospital (02) | DRG 862 ==
LOC: EDUNIT# 21:12 → ER 21:15 → ICU 23:30
PROVIDERS: ADMIT Surgery; ATTEND Surgery
DX: T81.43XA Infection following a procedure, organ and space surgical site, initial encounter (principal); A41.9 Sepsis, unspecified organism; K72.00 Acute and subacute hepatic failure without coma; R65.20 Severe sepsis without septic shock; K91.870 Postprocedural hematoma of a digestive system organ or structure following a digestive system procedure; D62 Acute posthemorrhagic anemia; Z68.42 Body mass index [BMI] 45.0-49.9, adult; Z20.822 Contact with and (suspected) exposure to COVID-19; E78.00 Pure hypercholesterolemia, unspecified; I10 Essential (primary) hypertension; G43.909 Migraine, unspecified, not intractable, without status migrainosus; K21.9 Gastro-esophageal reflux disease without esophagitis; M19.90 Unspecified osteoarthritis, unspecified site; E11.9 Type 2 diabetes mellitus without complications; F41.9 Anxiety disorder, unspecified; E66.01 Morbid (severe) obesity due to excess calories; I72.8 Aneurysm of other specified arteries; Z98.84 Bariatric surgery status; Z88.0 Allergy status to penicillin; Z88.5 Allergy status to narcotic agent; Z79.84 Long term (current) use of oral hypoglycemic drugs; Z79.899 Other long term (current) drug therapy
CPT/HCPCS: 36415; 71275; 74177; 80048; 80053; 81000; 82805; 82947; 83540; 83605; 83690; 83735; 84100; 85025; 85610; 85730; 86141; 86850; 86900; 86901; 87040; 87077; 87081; 87088; 87186; 87636; 93005; 94640; 94760

== ENCOUNTER → 2020-09-20 | Outpatient (CLI) | payer BC ==
[~2020-09-20] MED LIST changes: +ALPR0.5T7 PO; +ASCO500T17 PO; +CATHETER FLUSH 10 ML SYR IV PRN; +CHOL100048 PO; +CYAN500T8 PO; +HOLD METFORMIN - RECEIVED CONTRAST 20 ML VIAL IV SCH; +IOHEXOL 350 MG/ML 100 ML (OMNIPAQUE 350) VIAL IV ONE; +LOPE-175 PO; +NS 100 ML (IVPB) BAG IV ONE; +ONDA4TAB11 PO; +SIME125T PO; +SUMA100T3 PO
--- NOTE | 2020-09-20 15:08 | Diagnostic Imaging Report ---
PROCEDURE: CT abdomen and pelvis with and without contrast. TECHNIQUE: Precontrast acquisitions were acquired through the abdomen and pelvis. Multiple contiguous axial images were obtained through the abdomen and pelvis after the administration of intravenous contrast. Auto Exposure Controls were utilized during the CT exam to meet ALARA standards for radiation dose reduction. INDICATION: Abdominal pain. Patient is status post gastric sleeve surgery one month ago with a history of gastric leak and fistula. COMPARISON: Correlation is made with recent CT of the abdomen and pelvis from 08/30/2020. FINDINGS: There are moderate-sized bilateral pleural effusions with associated bibasilar consolidation. The pleural effusion on the right has increased in size and now layers dependently to a thickness of 6 cm compared with approximately 3 cm. Pleural fluid on the left is about the same. A pigtail percutaneous drain is now located in the left upper quadrant, draining the previously noted fluid collection in the region of the pancreatic body and tail. A second drain has the pigtail located in the splenic hilum. This fluid collection has also significantly decreased in size. The area of hyperenhancement near the splenic hilum suspicious for pseudoaneurysm is not appreciated on today's exam. The liver, pancreas, and spleen are otherwise unremarkable. No adrenal mass is detected. Kidneys are stable. Aorta is nonaneurysmal. No free fluid is seen. No new fluid collection is identified. Bowel loops appear to be nonobstructed. Bladder is decompressed. IMPRESSION: 1. There has been placement of percutaneous drains in left upper quadrant, draining previously noted fluid collections. These have significantly decreased in size when compared with prior study. There is some mild very small residual approximately 4 x 3 cm fluid collection at the splenic hilum. The fluid collection slightly more medial to this has nearly completely resolved. 2. Bilateral effusions, increased on the right when compared with prior CT. There is also bibasilar atelectasis. 3. No new fluid collection is identified. Dictated by: Dictated on workstation # [id number]
== END ==
LOC: RAD FS 13:45
PROVIDERS: ATTEND Surgery
DX: J98.11 Atelectasis (principal); R18.8 Other ascites; Z98.84 Bariatric surgery status; Z87.19 Personal history of other diseases of the digestive system
CPT/HCPCS: 74178

== ENCOUNTER → 2020-10-08 | Outpatient (CLI) | payer BC ==
[~2020-10-08] MED LIST changes: -CATHETER FLUSH 10 ML SYR IV PRN
--- NOTE | 2020-10-08 19:54 | Diagnostic Imaging Report ---
PROCEDURE: CT abdomen and pelvis with contrast. TECHNIQUE: Multiple contiguous axial images were obtained through the abdomen and pelvis after administration of intravenous contrast. Auto Exposure Controls were utilized during the CT exam to meet ALARA standards for radiation dose reduction. All CT scans use one or more of the following dose optimizing techniques: automated exposure control, MA and/or KvP adjustment based on patient size and exam type or iterative reconstruction. DATE: October 08, 2020. COMPARISON: CT abdomen and pelvis August 30, 2020. INDICATION: 55-year-old female, status post gastric sleeve. Fistula. FINDINGS: There is a small right pleural effusion. There is an incompletely imaged at least moderate to large left pleural effusion. There is homogeneously enhancing consolidation in the left lower lobe with volume loss as well as similar-appearing opacification in the lingula most consistent with atelectasis. The heart is not enlarged. There is no pericardial effusion. The liver is unremarkable in size and contour. There is no identified focal liver lesion. The main, right and left portal veins are patent. The gallbladder is surgically absent. There is no biliary ductal dilation. The main pancreatic duct is normal in caliber. The spleen is normal in size. The adrenal lines are unremarkable. There are nonobstructing renal stones, bilaterally. There is no hydronephrosis. There is no identified ureteral stone. The urinary bladder is unremarkable. The uterus is absent. There is mild diverticulosis without evidence of acute diverticulitis. The appendix is likely surgically absent. There is postoperative material at the level of the gastroesophageal junction and extending along the greater curvature of the stomach. There is a drainage catheter in the left upper quadrant with a focal area of fluid adjacent to the medial margin of the spleen near the catheter measuring 2.5 x 1.8 cm in axial extent on axial image 28. There is a jejunostomy tube in place. Intestinal tract is not distended. There is no free intraperitoneal air. There is no free pelvic fluid. There are surgical clips at the previously suspected pseudoaneurysm of the splenic artery. There are atherosclerotic calcifications. There is no identified abnormally enlarged lymph node in the abdomen or pelvis meeting CT size criteria for adenopathy. There is no identified acute bony abnormality. IMPRESSION: CT abdomen and pelvis: 1. Postoperative changes of the stomach with drainage catheter in the left upper quadrant with persistent focal fluid collection at this site measuring 2.5 x 1.8 cm in size. This is substantially decreased in size since August 30, 2020. No current free intracranial air. No layering free pelvic fluid. 2. Incompletely imaged at least moderate to large left pleural effusion and small right pleural effusion with atelectasis in the lingula, left lower lobe, and mild dependent atelectasis in the right lower lobe. 3. Nonobstructing renal stones, bilaterally. Dictated by: Dictated on workstation # [id number]
== END ==
LOC: RAD 13:15
PROVIDERS: ATTEND Surgery
DX: J90 Pleural effusion, not elsewhere classified (principal); J98.11 Atelectasis; N20.0 Calculus of kidney; K91.1 Postgastric surgery syndromes
CPT/HCPCS: 74177

== ENCOUNTER 2020-10-15 11:53 | Outpatient (CLI) | payer BC ==
[~2020-10-15 11:53] MED LIST changes: -HOLD METFORMIN - RECEIVED CONTRAST 20 ML VIAL IV SCH; -IOHEXOL 350 MG/ML 100 ML (OMNIPAQUE 350) VIAL IV ONE; -NS 100 ML (IVPB) BAG IV ONE
[2020-10-15 12:10] VITALS: BP 154/85
[2020-10-15] MEDS ORDERED: fentaNYL INJ 100 MCG/2 ML AMP IVP ONE (12:15)
[2020-10-15] MEDS ORDERED: MIDAZOLAM 2 MG/2 ML (VERSED) VIAL IVP ONE (12:15)
--- NOTE | 2020-10-15 13:19 | Diagnostic Imaging Report ---
INDICATION: Pleural effusion. Images of the left side of the chest were obtained demonstrating a left pleural effusion with extensive septations. Dr. Mei performed thoracentesis. See his dictation for details of this procedure. IMPRESSION: Ultrasound images demonstrate a markedly septated and complex left pleural effusion. Dictated by: Dictated on workstation # [id number]
--- NOTE | 2020-10-15 15:16 | Diagnostic Imaging Report ---
INDICATION: Followup chest tube. COMPARISON: 07/12/2018 exam. FINDINGS: There is a pigtail catheter now present overlying the left lower chest. There is opacification of the left lower lung consistent with pleural effusion and atelectasis. Left upper lung remains clear. Right lung is clear. No pneumothorax. IMPRESSION: Left chest tube now present within the pleural space. There continues to be atelectasis of the left lower lung and pleural effusion. No pneumothorax. Dictated by: Dictated on workstation # [id number]
--- NOTE | 2020-10-15 20:30 | OPERATIVE REPORT ---
DATE OF SERVICE: 10/15/2020 ATTENDING WEB SERVICES ARCHITECT: Yenni Charles APRN. PREOPERATIVE DIAGNOSIS: Persistent left pleural effusion. POSTOPERATIVE DIAGNOSIS: Persistent left pleural effusion. PROCEDURE: Left thoracentesis. SURGEON: Andrew Michael MD ANESTHESIA: Local. ESTIMATED BLOOD LOSS: Minimal. FINDINGS: Loculated pleural effusion, only approximately 400 mL of straw yellow transudative fluid removed. DISPOSITION: The patient tolerated the procedure well. INDICATIONS: The patient is a 55-year-old female known to us. She underwent a laparoscopic gastric sleeve resection; however, presented approximately 11 days later with fevers and was found to have a fluid collection. Interventional radiology was not available, and she was transferred to [facility] where she was found to have a fistula and she underwent intra-abdominal drain placement, feeding jejunostomy tube placement as well as endoscopic repair. Since that time, she has been n.p.o.; however, recently underwent a CT scan with oral contrast, which did not show any leak. CT scan also did show significant sized pleural effusion and she reports that she has been more short of breath. Before the procedure, an ultrasound was performed, and the posterior left chest was marked. The back was then prepped and draped in standard surgical fashion. A 1% lidocaine was then used to anesthetize the skin, subcutaneous tissue, muscle layers as well as the parietal pleura. A vertical skin incision was made using 11 blade and the catheter and trocar were then placed withdrawing of straw yellow transudative fluid. The catheter was then advanced over the guidewire without any resistance. The catheter was then connected to suction tubing where approximately 400 mL of straw yellow fluid were evacuated. The catheter was then removed while holding direct pressure and an Op-Site placed on the entry site. The patient tolerated the procedure well. We will get a post-procedure chest x-ray. She is already scheduled to get a repeat CT scan of the chest and abdomen and we will see if this pleural effusion recurs or persists and this may encompass multiple thoracenteses with ultrasound to identify the different pockets of fluid accumulation versus a potential chest tube placement if she continues to be symptomatic. Job ID: [id number] DocumentID: [id number] Dictated Date: 10/15/2020 14:03:48 Summer School Coordinator Date: 10/15/2020 20:30:24 Dictated By: ANDREW MICHAEL MD
== END 2020-10-15 13:35 | disposition home or self-care (01) ==
LOC: SDC 11:53
PROVIDERS: ATTEND Surgery
DX: J90 Pleural effusion, not elsewhere classified (principal)
CPT/HCPCS: 32554; 71045; 76942

== ENCOUNTER 2020-10-22 11:19 | Outpatient (CLI) | payer BC ==
[~2020-10-22] VITALS: Ht 162.6 cm; Wt 110.0 kg
[2020-10-22] VITALS (11 sets, daily range): BP systolic 126–153; BP diastolic 60–79
[~2020-10-22 11:19] MED LIST changes: -CATHETER FLUSH 10 ML SYR IV PRN; -HOLD METFORMIN - RECEIVED CONTRAST 20 ML VIAL IV SCH; -IOHEXOL 350 MG/ML 100 ML (OMNIPAQUE 350) VIAL IV ONE; -NS 100 ML (IVPB) BAG IV ONE
[2020-10-22 13:03] LABS: BASOPHILS # (AUTO) 0.1 10^3/uL (0.0-0.1); BASOPHILS % (AUTO) 1 % (0-10); EOSINOPHILS # (AUTO) 0.1 10^3/uL (0.0-0.3); EOSINOPHILS % (AUTO) 1 % (0-10); HEMATOCRIT 31 % (35-52); HEMOGLOBIN 9.6 g/dL (11.5-16.0); LYMPHOCYTES # (AUTO) 1.2 10^3/uL (1.0-4.0); LYMPHOCYTES % (AUTO) 10 % (12-44); MEAN CORPUSCULAR HEMOGLOBIN 26 pg (25-34); MEAN CORPUSCULAR HGB CONC 31 g/dL (32-36); MEAN CORPUSCULAR VOLUME 85 fL (80-99); MEAN PLATELET VOLUME 8.7 fL (9.0-12.2); MONOCYTES # (AUTO) 0.7 10^3/uL (0.0-1.0); MONOCYTES % (AUTO) 6 % (0-12); NEUTROPHILS # (AUTO) 9.9 10^3/uL (1.8-7.8); NEUTROPHILS % (AUTO) 81 % (42-75); PLATELET COUNT 585 10^3/uL (130-400); WHITE BLOOD COUNT 12.2 10^3/uL (4.3-11.0)
[2020-10-22 13:17] LABS: INR 1.1 (0.8-1.4); PROTHROMBIN TIME PATIENT 14.6 SEC (12.2-14.7)
[2020-10-22] MEDS ORDERED: MIDAZOLAM 2 MG/2 ML (VERSED) VIAL IVP ONE (14:00)
[2020-10-22] MEDS ORDERED: MIDAZOLAM 2 MG/2 ML (VERSED) VIAL ONE (14:00)
[2020-10-22] MEDS ORDERED: LIDOCAINE 1% INJ 20 ML 20 ML VIAL INJ ONE (14:15)
[2020-10-22] MEDS ORDERED: fentaNYL INJ 100 MCG/2 ML AMP IVP ONE (14:15)
--- NOTE | 2020-10-22 15:59 | Progress Note-Pre Operative ---
Pre-Operative Progress Note H&P Reviewed The H&P was reviewed, patient examined and no changes noted. Date Seen by Provider: Oct 22, 2020 Time Seen by Provider: 14:00 Date H&P Reviewed: Oct 22, 2020 Time H&P Reviewed: 14:00 Pre-Operative Diagnosis: Left pleural fluid collection PARK GLYNN MD Oct 22, 2020 15:59
--- NOTE | 2020-10-22 16:17 | Diagnostic Imaging Report ---
INDICATION: Left-sided loculated pleural effusion. TECHNIQUE: All CT scans use one or more of the following dose optimizing techniques: automated exposure control, MA and/or KvP adjustment based on patient size and exam type or iterative reconstruction. PROCEDURE: The patient presents for a CT-guided drain placement. The patient was brought to the CT suite, placed on table with the right side down decubitus position. Axial imaging through chest was performed to evaluate appropriate entry site. The lower left posterolateral thorax was prepped and draped in the usual sterile fashion. A small amount 1% lidocaine was utilized for local anesthesia. The loculated fluid collection in the left base was percutaneously accessed utilizing a 7 cm Yueh needle. The Yueh needle was exchanged over an 035 guidewire. 6, 8, 10 and 12-Welsh dilators were then utilized to dilate the tract. Next, a 12-Welsh all-purpose pigtail drain was advanced over the wire and placed into the loculated pleural fluid collection. Wire was removed. Pigtail was formed. The percutaneous drain was affixed to the patient's skin and placed to a lalitha drain. Follow-up imaging shows no complicating features. Approximately 70 mL of serous light brown-tinged fluid was removed and sent to lab for culture and sensitivity. The patient tolerated the procedure well and left the department in stable condition. The patient was given a total of 100 mcg of fentanyl intravenously. Total procedure time was approximately 12 minutes. IMPRESSION: 1. Successful CT-guided percutaneous 12-Welsh drain placement into the loculated left basilar pleural collection. Dictated by: Dictated on workstation # [id number]
--- NOTE | 2020-10-27 16:05 | Diagnostic Imaging Report ---
INDICATION: Left-sided loculated pleural effusion. TECHNIQUE: All CT scans use one or more of the following dose optimizing techniques: automated exposure control, MA and/or KvP adjustment based on patient size and exam type or iterative reconstruction. PROCEDURE: The patient presents for a CT-guided drain placement. The patient was brought to the CT suite, placed on table with the right side down decubitus position. Axial imaging through chest was performed to evaluate appropriate entry site. The lower left posterolateral thorax was prepped and draped in the usual sterile fashion. A small amount 1% lidocaine was utilized for local anesthesia. The loculated fluid collection in the left base was percutaneously accessed utilizing a 7 cm Yueh needle. The Yueh needle was exchanged over an 035 guidewire. 6, 8, 10 and 12-Palauan dilators were then utilized to dilate the tract. Next, a 12-Palauan all-purpose pigtail drain was advanced over the wire and placed into the loculated pleural fluid collection. Wire was removed. Pigtail was formed. The percutaneous drain was affixed to the patient's skin and placed to a lalitha drain. Follow-up imaging shows no complicating features. Approximately 70 mL of serous light brown-tinged fluid was removed and sent to lab for culture and sensitivity. The patient tolerated the procedure well and left the department in stable condition. The patient was given a total of 100 mcg of fentanyl intravenously. Total procedure time was approximately 12 minutes. IMPRESSION: 1. Successful CT-guided percutaneous 12-Palauan drain placement into the loculated left basilar pleural collection. Dictated by: Dictated on workstation # [id number]
== END 2020-10-22 16:30 | disposition home or self-care (01) ==
LOC: SDC 11:19
PROVIDERS: ATTEND Surgery
DX: J90 Pleural effusion, not elsewhere classified (principal)
CPT/HCPCS: 77012; 85025; 85610; 85730; 87070; 87075; 87205; C1729 ×2; C1769; 36415

== ENCOUNTER → 2020-10-22 | Outpatient (CLI) | payer BC ==
[~2020-10-22] MED LIST changes: +CATHETER FLUSH 10 ML SYR IV PRN; +HOLD METFORMIN - RECEIVED CONTRAST 20 ML VIAL IV SCH; +IOHEXOL 350 MG/ML 100 ML (OMNIPAQUE 350) VIAL IV ONE; +NS 100 ML (IVPB) BAG IV ONE
[2020-10-22 09:37] LABS: CREATININE SERUM 0.63 MG/DL (0.60-1.30)
--- NOTE | 2020-10-22 11:19 | Diagnostic Imaging Report ---
PROCEDURE: CT chest, abdomen, and pelvis with contrast. TECHNIQUE: Multiple contiguous axial images were obtained through the chest, abdomen, and pelvis after the administration of intravenous contrast. Auto Exposure Controls were utilized during the CT exam to meet ALARA standards for radiation dose reduction. INDICATION: Follow-up pleural effusion. Patient is status post gastric sleeve with gastric leak. Patient does complain of cough and shortness of breath. COMPARISON: Correlation is made with prior CT chest from 08/27/[address] abdomen and pelvis from 10/08/2020. CT CHEST: A right-sided PICC line has the tip in the SVC. No axillary lymphadenopathy is identified. No definite hilar lymphadenopathy is identified. There is soft tissue fullness in the subcarinal location measuring 4.0 x 1.9 cm. No pericardial fluid is identified. Right-sided pleural effusion previously noted has decreased and is now trace. Patient has developed a loculated effusion in the lower left chest measuring 13.4 x 6.8 cm. This does contain gas and is suspicious for empyema. Associated atelectasis and consolidation in the left lower lobe is also noted. The remainder of the lung loyd appear to be clear. There is some simple appearing fluid in the major fissure on the left. CT ABDOMEN AND PELVIS: The left upper quadrant percutaneous drain is again noted. There is minimal residual fluid density adjacent to the drain, but this appears to be smaller measuring 16 mm compared with approximately 25 mm x 18 mm. There has been embolization of the patient's previously noted splenic hilum pseudoaneurysm. There are postop changes from gastric bypass. No free fluid or free air is identified. Jejunostomy tube is noted. The liver is unremarkable. Gallbladder is surgically absent. Pancreas and spleen are unremarkable. There is no adrenal mass. Kidneys appear stable. Aorta is nonaneurysmal. Small and large bowel loops are normal in caliber. Bladder is decompressed. IMPRESSION: 1. Development of a loculated effusion in the left lung base with a large amount of gas consistent with probable empyema. There is associated compressive atelectasis in the left lower lobe as well. 2. Decrease in size of right pleural effusion which is now trace. 3. Left upper quadrant percutaneous drain. Only minimal residual fluid in the left upper quadrant is noted, improved since exam two weeks earlier. No new or additional abnormality in the abdomen or pelvis is identified. Results were discussed with Dr. Mei. We will plan to undergo CT-guided percutaneous chest drain placement on the left today. Dictated by: Dictated on workstation # [id number]
== END ==
LOC: RAD FS 08:25
PROVIDERS: ATTEND Surgery
DX: J90 Pleural effusion, not elsewhere classified (principal); Z98.84 Bariatric surgery status
CPT/HCPCS: 36415; 71260; 74177; 82565; 84520

== ENCOUNTER → 2020-11-01 | Outpatient (CLI) | payer BC ==
[~2020-11-01] MED LIST changes: +CATHETER FLUSH 10 ML SYR IV PRN; +HOLD METFORMIN - RECEIVED CONTRAST 20 ML VIAL IV SCH; +IOHEXOL 350 MG/ML 100 ML (OMNIPAQUE 350) VIAL IV ONE; +NS 100 ML (IVPB) BAG IV ONE
--- NOTE | 2020-11-01 14:07 | Diagnostic Imaging Report ---
PROCEDURE: CT chest with contrast only. TECHNIQUE: Multiple contiguous axial images were obtained through the chest after administration of intravenous contrast. Auto Exposure Controls were utilized during the CT exam to meet ALARA standards for radiation dose reduction. INDICATION: Pleural effusion. FINDINGS: There is a pigtail catheter in good position within a moderate sized residual left-sided pleural collection. The pleura is thickened and there are few bubbles of gas within the pleura. The imaging appearance is suspicious for complex or exudative effusion including considerations for a empyema. There does appear to be a substantial amount of pleural fluid left, again the catheter projects in good position. A small amount of pleural fluid extends is interfissural where it is partially loculated. There are some consolidative changes in the subjacent dependent left lower lobe. The right lung and right pleural space were negative. There is no lymphadenopathy. The vascular structures patent, nonaneurysmal and nonacute. There is no pericardial collection. The visualized upper abdomen shows no acute abnormality. IMPRESSION: There is still a moderate volume of left pleural fluid, likely complex and exudative with pleural thickening, bubbles of gas within the pleura and the fluid measuring greater than typical simple serous fluid, correlate for empyema. Catheter itself is in good position. The subjacent dependent left basilar consolidation, the right lung and right pleural space negative. No vascular pathology. Dictated by: Dictated on workstation # [id number]
== END ==
LOC: RAD 14:15
PROVIDERS: ATTEND Surgery
DX: J90 Pleural effusion, not elsewhere classified (principal)
CPT/HCPCS: 71260

== ENCOUNTER → 2020-11-15 | Outpatient (CLI) | payer BC ==
[~2020-11-15] MED LIST changes: -CATHETER FLUSH 10 ML SYR IV PRN; -HOLD METFORMIN - RECEIVED CONTRAST 20 ML VIAL IV SCH; -IOHEXOL 350 MG/ML 100 ML (OMNIPAQUE 350) VIAL IV ONE; -NS 100 ML (IVPB) BAG IV ONE
--- NOTE | 2020-11-15 16:20 | Diagnostic Imaging Report ---
EXAMINATION: CT chest without contrast. TECHNIQUE: Multiple contiguous axial images were obtained through the chest without the use of intravenous contrast. All CT scans use one or more of the following dose optimizing techniques: automated exposure control, MA and/or KvP adjustment based on patient size and exam type or iterative reconstruction. HISTORY: PLEURAL EFFUSION COMPARISON: 11/01/2020 FINDINGS: Thyroid: The thyroid is normal. Mediastinum: Heart size is normal without significant pericardial effusion. The aorta is normal in caliber. No suspicious lymphadenopathy. Lungs and airways: There is a loculated left pleural air and fluid collection with increasing pleural thickening. A left-sided pleural drainage catheter is present. There is stable left basilar atelectasis or consolidation. Stable loculated fluid along the left major fissure. The airways are normal. Upper abdomen: The gallbladder is surgically absent. There are surgical changes of the gastroesophageal junction. There are surgical clips near the splenic hilum. Musculoskeletal: Degenerative changes of the spine without suspicious osseous lesion or compression fracture. IMPRESSION: 1. Stable loculated left pleural air and fluid collection compared to 11/01/2020 with pleural drainage catheter in place. Findings remain concerning for empyema. 2. Stable left basilar atelectasis or consolidation. Dictated by: Dictated on workstation # [id number]
== END ==
LOC: RAD 13:45
PROVIDERS: ATTEND Surgery
DX: J90 Pleural effusion, not elsewhere classified (principal)
CPT/HCPCS: 71250

== ENCOUNTER → 2020-11-26 | Outpatient (CLI) | payer BC | LOC: LABNPT 09:00 | PROVIDERS: ATTEND Nurse Practitioner Family | DX: Z20.822 Contact with and (suspected) exposure to COVID-19 (principal) | CPT/HCPCS: 87635 ==